=== PATIENT | male | born 1965 | race Caucasian/White ===

== ENCOUNTER 2023-02-23 09:37 | Emergency (ER) | payer MEDICARE, MEDICAID, SELFPAY ==
[2023-02-23 09:46] VITALS: BP 146/88; PULSE 104; RESP 20; TEMP 37; O2SAT 98; BMI 32.1
[2023-02-23] MEDS: PREDNISONE 20 MG TABLET 40 MG PO (11:46)
--- NOTE | 2023-02-23 15:56 | ED.URI1 ---
HPI - URI/Sore Throat General Chief Complaint: Upper Respiratory Infection Stated Complaint: SINUSES LT SIDE PAIN Time Seen by Provider: 02/23/23 10:13 Source: patient Limitations: no limitations History of Present Illness HPI Narrative: The patient have history of chronic allergy and he usually have drainage from his left nostril but he noted that for the last few days has been getting worse with tenderness on palpation of the left side of the face as well as a greenish discharge The patient denies any other complaints Related Data Home Medications Medication Instructions Recorded Confirmed allopurinol 100 mg tablet 100 mg PO DAILY 02/23/23 02/23/23 atorvastatin 20 mg tablet 20 mg PO DAILY 02/23/23 02/23/23 escitalopram oxalate 20 mg tablet 20 mg PO DAILY 02/23/23 02/23/23 fexofenadine 180 mg tablet 180 mg PO DAILY 02/23/23 02/23/23 levothyroxine 112 mcg tablet 112 mcg PO DAILY 02/23/23 02/23/23 ropinirole 0.25 mg tablet 0.25 mg PO DAILY 02/23/23 02/23/23 trazodone 50 mg tablet 50 mg PO BEDTIME 02/23/23 02/23/23 Previous Rx's Medication Instructions Recorded amoxicillin 875 mg-potassium 1 tab PO Q12H #14 tabs 02/23/23 clavulanate 125 mg tablet fluticasone propionate 50 1 spray intranasal Q12H #16 grams 02/23/23 mcg/actuation nasal spray,suspension (Flonase Allergy Relief) Allergies Allergy/AdvReac Type Severity Reaction Status Date / Time No Known Drug Allergies Allergy Verified 02/23/23 09:43 Review of Systems ROS Status of ROS 10 or more systems reviewed and unremarkable except as noted in history and below PFSH PFS Social History Smoking status: Former smoker Exam Narrative Exam Narrative: Nurses notes and vital signs reviewed and patient is not hypoxic. General: Well-appearing and in no apparent distress. Skin: Warm, dry, no pallor noted. No rash. Head: Normocephalic, atraumatic. Neck: Supple, non-tender. Eye: Pupils are equal, round and EOMI. No scleral icterus. Ears, Nose, Mouth, and Throat: TM are clear, no nasal mucosal hypertrophy. Oral mucosa is moist, no posterior oropharynx erythema, uvula is mid-line Cardiovascular: Regular Rate and Rhythm without murmur, gallop or rub. There is tenderness upon palpation of the left side of the face at the maxillary area and the patient have nasal mucosa erythema Respiratory: No accessory muscle use or respiratory distress. Lungs are clear to auscultation, no wheezing, rales or rhonchi Chest Wall: no tenderness Back: No midline thoracic or lumbar vertebral tenderness. No CVA tenderness Musculoskeletal: normal ROM, no calf or popliteal tenderness, no lower extremity edema/swelling GI: Abdomen is soft, non-distended. Normal bowel sounds. No masses appreciated. No tenderness to palpation. No rebound, guarding, or rigidity noted. Neurological: A&O x4. No cranial nerve dysfunction observed. No truncal ataxia. Moves all extremities. Sensation intact. Psychiatric: Cooperative and interactive. Normal mood and affect. Constitutional Vital Signs, click to edit/add: Last Vital Signs Temp 98.6 F 02/23/23 09:46 Pulse 104 H 02/23/23 09:46 Resp 20 02/23/23 09:46 BP 146/88 H 02/23/23 09:46 Pulse Ox 98 02/23/23 09:46 O2 Del Method Room Air 02/23/23 09:46 Course Vital Signs Vital signs: Vital Signs Temperature 98.6 F 02/23/23 09:46 Pulse Rate 104 H 02/23/23 09:46 Respiratory Rate 20 02/23/23 09:46 Blood Pressure 146/88 H 02/23/23 09:46 Pulse Oximetry 98 02/23/23 09:46 Oxygen Delivery Method Room Air 02/23/23 09:46 Temperature 98.6 F 02/23/23 09:46 Pulse Rate 104 H 02/23/23 09:46 Respiratory Rate 20 02/23/23 09:46 Blood Pressure 146/88 H 02/23/23 09:46 Pulse Oximetry 98 02/23/23 09:46 Oxygen Delivery Method Room Air 02/23/23 09:46 MDM - URI/Sore Throat MDM Narrative Medical decision making narrative: The patient presenting with a greenish-yellowish discharge with tenderness upon palpation of the left sinus with a history of chronic allergic sinusitis the patient right now mostly have bacterial infection on top of his chronic sinusitis and he will be treated with Augmentin The patient is to follow up with primary care physician in next 2-3 days or to return to the emergency department should any of the signs or symptoms worsen or new symptoms develop. The patient agrees with the following Diagnosis and Treatment plan and the patient will be discharged home. Discharge Plan Discharge Chief Complaint: Upper Respiratory Infection Clinical Impression: Bacterial sinusitis Patient Disposition: Home, Self-Care Time of Disposition Decision: 11:24 Condition: Good Prescriptions / Home Meds: New amoxicillin-pot clavulanate 875-125 mg tablet 1 tab PO Q12H Qty: 14 0RF fluticasone propionate [Flonase Allergy Relief] 50 mcg/actuation spray,suspension 1 spray intranasal Q12H Qty: 16 0RF Rx Instructions: administer into each nostril No Action allopurinol 100 mg tablet 100 mg PO DAILY atorvastatin 20 mg tablet 20 mg PO DAILY fexofenadine 180 mg tablet 180 mg PO DAILY escitalopram oxalate 20 mg tablet 20 mg PO DAILY levothyroxine 112 mcg tablet 112 mcg PO DAILY ropinirole 0.25 mg tablet 0.25 mg PO DAILY trazodone 50 mg tablet 50 mg PO BEDTIME Instructions: Sinusitis (ED) Stand Alone Forms: Portal Instructions Referrals: Physician,Non-Staff, MD [Primary Care Provider] - 1 week Discharge Date/Time: 02/23/23 11:52
== END 2023-02-23 11:52 | disposition home or self-care (01) ==
PROVIDERS: Emergency Provider Emergency Medicine
DX: J32.9 Chronic sinusitis, unspecified (principal); B96.89 Other specified bacterial agents as the cause of diseases classified elsewhere; Z79.899 Other long term (current) drug therapy; Z79.890 Hormone replacement therapy; Z87.891 Personal history of nicotine dependence
CPT/HCPCS: 99283

== ENCOUNTER 2023-10-17 08:18 | Outpatient (OUT) | payer MEDICARE, MEDICAID, SELFPAY ==
[2023-10-17 08:52] LABS: Bilirubin Urine NEGATIVE (NEGATIVE); Blood Urine NEGATIVE (NEGATIVE); Clarity Urine CLEAR (CLEAR); Color Urine YELLOW (YELLOW); Glucose Urine UA NEGATIVE (NEGATIVE); Ketones Urine NEGATIVE (NEGATIVE); Leukocyte Esterase Urine NEGATIVE (NEGATIVE); Nitrite Urine NEGATIVE (NEGATIVE); Protein Urine NEGATIVE (NEG/TRACE); Specific Gravity Urine 1.025 (1.005-1.025); Urobilinogen Urine 0.2 EU/dL (0.2-1.0)
[2023-10-17 08:55] LABS: Urine Microscopic Indicated NO
[2023-10-17 10:14] LABS: Prostate Specific Antigen Dx 6.74 ng/mL (<=4.00)
[2023-10-17 10:56] LABS: Chol HDL Ratio 4.5; Cholesterol 168 mg/dL (<=200); HDL Cholesterol 37 mg/dL (40-60); Triglycerides 209 mg/dL (<=150); Uric Acid 5.8 mg/dL (3.5-7.2); VLDL CHOLESTEROL 41.8 mg/dL
== END 2023-10-17 08:19 | disposition home or self-care (01) ==
LOC: LAB 08:19
PROVIDERS: PCP Nurse Practitioner; Visit Provider Nurse Practitioner
DX: E78.2 Mixed hyperlipidemia (principal); M1A.9XX0 Chronic gout, unspecified, without tophus (tophi); Z12.5 Encounter for screening for malignant neoplasm of prostate; Z72.0 Tobacco use
CPT/HCPCS: 36415; 80061; 81003; 84153; 84550

== ENCOUNTER 2023-11-14 08:58 | Outpatient (OUT) | payer MEDICARE, MEDICAID, SELFPAY ==
--- OUTSIDE RECORDS SUMMARY | 2023-11-14 09:08 | XMS_ITS | CCD ---
Author Organization [facility] Care Team Providers Care Bar Manager Name Role Phone AICHHOLZ, LATIN DANCER SHAZIA Consulting Unavailable AICHHOLZ, LATIN DANCER SHAZIA Attending Unavailable AICHHOLZ, LATIN DANCER SHAZIA Admitting Unavailable AICHHOLZ, LATIN DANCER SHAZIA Primary Care Unavailable AICHHOLZ, LATIN DANCER SHAZIA Consulting Unavailable AICHHOLZ, LATIN DANCER SHAZIA Attending Unavailable AICHHOLZ, LATIN DANCER SHAZIA Admitting Unavailable AICHHOLZ, LATIN DANCER SHAZIA Primary Care Unavailable Aichholz PELLETISING EXTRUDER OPERATOR, Shazia Unavailable Patric Quevedo MD Primary Care Provider MIGUELANGEL RIVERO Attending Unavailable AICHHOLZ, SHAZIA J Referring Unavailable AICHHOLZ, SHAZIA J Primary Care Unavailable DANI SEGAL Attending Unavailable AICHHOLZ, SHAZIA J Referring Unavailable AICHHOLZ, SHAZIA J Primary Care Unavailable RODDY JACINTO Attending Unavailable RODDY JACINTO Referring Unavailable RODDY JACINTO Referring Unavailable RODDY JACINTO Referring Unavailable JR. BLACKMON GEORGE C Attending Unavaila ble RODDY JACINTO Attending Unavailable RODDY JACINTO Referring Unavailable AICHHOLZ, SHAZIA Attending Unavailable AICHHOLZ, SHAZIA J Referring Unavailable AICHHOLZ, SHAZIA J Primary Care Unavailable MIGUELANGEL RIVERO Referring Unavailable AICHHOLZ, SHAZIA J Primary Care Unavailable MIGUELANGEL RIVERO Admitting Unavailable MIGUELANGEL RIVERO Attending Unavailable MIGUELANGEL RIVERO Referring Unavailable AICHHOLZ, SHAZIA J Primary Care Unavailable CAMILO CHAVIRA Attending Unavailable AICHHOLZ, SHAZIA J Primary Care Unavailable EMANUEL HANKINS Referring Unavailable AICHHOLZ, SHAZIA J Primary Care Unavailable EMANUEL HANKINS Attending Unavailable AICHHOLZ, SHAZIA J Referring Unavailable AICHHOLZ, SHAZIA J Primary Care Unavailable EMANUEL HANKINS Referring Unavailable AICHHOLZ, SHAZIA J Primary Care Unavailable SHAZIA BARRIENTOS Primary Care Physician DEVIN TOLLIVER Attending Unavailab le Allergies Allergy Classification Reported Allergen(s) Allergy Type Date of Onset Reaction(s) Facility (1 source) celecoxib Drug Allergy 3 [facility] Repository (7 sources) celecoxib; Translations: [CELECOXIB] Drug Allergy 3 [facility] (4 sources) Octacosanol Drug Intolerance 3 Itching [facility] (1 source) No Known Medication Allergies; Translations: [No Known Medication Allergies] Propensity to adverse reactions (disorder) [facility] Repository Medications Current Medications Medication Drug Class(es) Dates Sig (Normalized) Sig (Original) allopurinol 100 mg oral tablet (5 sources) Xanthine Oxidase Inhibitor Start: 08-05-2019 take 1 tablet by mouth twice daily allopurinol 100 mg Tab 100 mg = 1 tab(s), Oral, BID Start Date: 08/05/19 Status: Ordered atorvastatin 20 mg oral tablet (5 sources) HMG-CoA Reductase Inhibitor Start: 08-05-2019 take 1 tablet by mouth once daily atorvastatin 20 mg Tab 20 mg = 1 tab(s), Oral, Daily Start Date: 08/05/19 Status: Ordered celecoxib 200 mg oral capsule (4 sources) Nonsteroidal Anti-inflammatory Drug take 1 capsule by mouth in the morning celecoxib (CeleBREX) 200 MG capsule Take 200 mg by mouth in the morning. 0 Active escitalopram 20 mg oral tablet (5 sources) Serotonin Reuptake Inhibitor Start: 08-05-2019 take 1 tablet by mouth once daily escitalopram 20 mg Tab 20 mg = 1 tab(s), Oral, Daily Start Date: 08/05/19 Status: Ordered fexofenadine hydrochloride 180 mg oral tablet (4 sources) Histamine-1 Receptor Antagonist take 1 tablet by mouth in the morning fexofenadine (Lakeisha) 180 MG tablet Take 180 mg by mouth in the morning. 0 Active fluticasone propionate 0.05 mg/actuat metered dose nasal spray (4 sources) Corticosteroid take 2 spray(s) nasal route in the morning fluticasone (Flonase) 50 MCG/ACT nasal spray Administer 2 sprays into each nostril in the morning. Shake gently. Before first use, prime pump. After use, clean tip and replace cap.. 0 Active meloxicam 15 mg oral tablet (1 source) Nonsteroidal Anti-inflammatory Drug Start: 08-05-2019 take 1 tablet by mouth once daily meloxicam 15 mg oral tablet 15 mg = 1 tab(s), Oral, Daily Start Date: 08/05/19 Status: Ordered rOPINIRole 0.25 mg oral tablet (5 sources) Nonergot Dopamine Agonist Start: 08-05-2019 take 1 tablet by mouth three times daily ropinirole 0.25 mg Tab 0.25 mg = 1 tab(s), Oral, TID Start Date: 08/05/19 Status: Ordered tiZANidine 4 mg oral tablet (1 source) Central alpha-2 Adrenergic Agonist Start: 11-05-2023 tiZANidine 4 mg Tab Refills(s) 0 Start Date: 11/05/23 Status: Ordered traZODone hydrochloride 50 mg oral tablet (5 sources) Serotonin Reuptake Inhibitor Start: 11-05-2023 traZODONE 50 mg Tab Refills(s) 0 Start Date: 11/05/23 Status: Ordered Start: 05-13-2023 End: 08-11-2023 take 2 tablets by mouth at bedtime traZODone (Desyrel) 50 MG tablet Indications: Other insomnia Take 2 tablets (100 mg) by mouth at bedtime Take 100 mg by mouth at bedtime 180 tablet 0 05/13/2023 08/11/2023 Active Completed/Discontinued Medications Medication Drug Class(es) Dates Sig (Normalized) Sig (Original) levothyroxine sodium 0.112 mg oral capsule (5 sources) l-Thyroxine Start: 08-05-2019 take 1 capsule by mouth once daily levothyroxine 112 mcg (0.112 mg) oral capsule 112 microgram = 1 cap(s), Oral, Daily Start Date: 08/05/19 Status: Ordered take 1 tablet by mouth before me altime levothyroxine (Synthroid, Levoxyl) 112 MCG tablet Take 112 mcg by mouth in the morning. Take before meals. 0 Active Problems Problem Classification Problem Date Documented Da te Episodic/Chronic Anxiety disorders (5 sources) Anxiety; Translations: [Anxiety disorder, unspecified] Onset: 05-05-2023 05-05-2023 Chronic Biliary tract disease (4 sources) Polyp of gallbladder; Translations: [Cholesterolosis of gallbladder] Onset: 05-05-2023 05-05-2023 Episodic Cardiac dysrhythmias (1 source) Atrial fibrillation 11-05-2023 Chronic Diabetes mellitus without complication (5 sources) Other abnormal glucose; Translations: [Increased glucose level] Onset: 07-25-2022 05-05-2023 Episodic Disorders of lipid metabolism (5 sources) Hyperlipidemia; Translations: [Hyperlipidemia, unspecified] Onset: 05-05-2023 05-05-2023 Chronic Gout and other crystal arthropathies (9 sources) Gout, unspecified; Translations: [Gout] Onset: 07-16-2022 Chronic Lymphadenitis (1 source) Localized enlarged lymph nodes; Translations: [Localized enlarged lymph nodes] Onset: 09-16-2023 Episodic Non-Hodgkin`s lymphoma (4 sources) Non-Hodgkin lymphoma, unspecified, unspecified site; Translations: [Non-Hodgkin lymphoma, unspecified, lymph nodes of inguinal region and lower limb] Onset: 09-30-2023 Chronic Osteoarthritis (13 sources) Osteoarthritis of right hip joint; Translations: [Unilateral primary osteoarthritis, right hip] Onset: 05-01-2023 05-01-2023 Chronic Other connective tissue disease (2 sources) History of total replacement of right hip joint; Translations: [Presence of right artificial hip joint] 07-07-2023 Chronic Other connective tissue disease (4 sources) History of total hip arthroplasty; Translations: [Presence of unspecified artificial hip joint] Onset: 05-01-2023 05-01-2023 Chronic Other connective tissue disease (2 sources) Mass of soft tissue of right upper limb; Translations: [Other specified soft tissue disorders] 07-07-2023 Episodic Other gastrointestinal disorders (2 sources) Other intra-abdominal and pelvic swelling, mass and lump; Translations: [Other intra-abdominal and pelvic swelling, mass and lump] Onset: 09-03-2023 Episodic Other hereditary and degenerative nervous system conditions (4 sources) Restless legs; Translations: [Restless legs syndrome] Onset: 05-05-2023 05-05-2023 Chronic Other male genital disorders (2 sources) Male erectile dysfunction, unspecified; Translations: [Erectile dysfunction] Onset: 11-05-2023 Chronic Other nervous system disorders (4 sources) Antalgic gait; Translations: [Other abnormalities of gait and mobility] Onset: 05-01-2023 05-01-2023 Episodic Other non-traumatic joint disorders (2 sources) Pain in right hip joint; Translations: [Pain in right hip] 07-07-2023 Episodic Other non-traumatic joint disorders (4 sources) Pain in right knee; Translations: [Pain in joint, lower leg] Onset: 05-05-2023 05-05-2023 Episodic Other nutritional; endocrine; and metabolic disorders (1 source) Obesity, unspecified; Translations: [Obesity, unspecified] Onset: 09-03-2023 Chronic Other nutritional; endocrine; and metabolic disorders (1 source) Adult-onset obesity 08-06-2019 Chronic Other nutritional; endocrine; and metabolic disorders (2 sources) Body mass index 40+ - severely obese 08-06-2019 Chronic Other screening for suspected conditions (not mental disorders or infectious disease) (13 sources) Elevated prostate specific antigen [PSA]; Translations: [Encounter for screening for malignant neoplasm of prostate] Onset: 07-22-2022 Episodic Other upper respiratory disease (4 sources) Allergic disposition; Translations: [Other allergic rhinitis] Onset: 05-05-2023 05-05-2023 Chronic Residual codes; unclassified (4 sources) Tobacco user; Translations: [Tobacco use] Onset: 05-05-2023 05-05-2023 Episodic Residual codes; unclassified (4 sources) Insomnia; Translations: [Insomnia, unspecified] Onset: 05-05-2023 05-05-2023 Episodic Residual codes; unclassified (1 source) Chews tobacco 08-05-2019 Episodic Thyroid disorders (5 sources) Hypothyroidism; Translations: [Hypothyroidism, unspecified] Onset: 05-05-2023 05-05-2023 Chronic Unclassified (1 source) POST-OP VISIT Onset: 09-30-2023 Unclassified (1 source) Mass Onset: 09-03-2023 Unclassified (1 source) Lymphoma Onset: 10-16-2023 Unclassified (1 source) right groin mass Onset: 09-16-2023 Results Test Name Value Interpretation Reference Range Facility Lab Reportson 11-07-2023 Lab Reports [id number] #1.00TIFF Normal [facility] RAD - Pet Scan Reporton 10-24 RAD - Pet Scan Report [id number] #1.00TIFF Normal [facility] Screenson 11-07-2023 Screens [id number] #1.00TIFF Normal [facility] Screens [id number] #1.00TIFF [facility] Auth for Release of Medical Recordson 11-06-2023 Auth for Release of Medical Records [id number]# 1.00TIFF [facility] Ambulatory Visit Summaryon 0 11-05-2023 Ambulatory Visit Summary MYKEL RAZO :1965 Visit Date:11/05/2023 Ambulatory Visit Instructions Your Diagnosis Elevated PSA Your Care Team Attending Physician - NITHIN TOLLIVER PA-C Primary Care Physician - SHAZIA BARRIENTOS CNP This Is Your Medications List allopurinol (allopurinol 100 mg Tab) atorvastatin (atorvastatin 20 mg Tab) escitalopram (escitalopram 20 mg Tab) levothyroxine (levothyroxine 112 mcg (0.112 mg) oral capsule) meloxicam (meloxicam 15 mg oral tablet) ropinirole (ropinirole 0.25 mg Tab) tizanidine (tiZANidine 4 mg Tab) trazodone (traZODONE 50 mg Tab) Procedures Performed Colonoscopy, History of right hip replacement. Discharge Vitals Temperature (Temporal Artery) 37 ?C Heart Rate (Apical) 77 Respiratory Rate 16 Blood Pressure 148/90 Height 72 in Height 183 cm Weight 306.46 lb Weight 139.3 kg BMI 41.6 Medications What How Much When Instructions Unchanged allopurinol (allopurinol 100 mg Tab) 1 Tablets By Mouth 2 times a day Unchanged atorvastatin (atorvastatin 20 mg Tab) 1 Tablets By Mouth Every day Unchanged escitalopram (escitalopram 20 mg Tab) 1 Tablets By Mouth Every day Unchanged levothyroxine (levothyroxine 112 mcg (0.112 mg) oral capsule) 1 Capsules By Mouth Every day Unchanged meloxicam (meloxicam 15 mg oral tablet) 1 Tablets By Mouth Every day Unchanged ropinirole (ropinirole 0.25 mg Tab) 1 Tablets By Mouth 3 times a day Unchanged tizanidine (tiZANidine 4 mg Tab) Unchanged trazodone (traZODONE 50 mg Tab) Allergies No Known Allergies No Known Medication Allergies Problems Ongoing - Any problem that you are currently receiving treatment for. Abnormal LFTs Abnormal US (ultrasound) of abdomen Adult BMI 40.0-44.9 kg/sq m Anxiety Arthritis Atrial fibrillation BMI 40.0-44.9, adult Chewing tobacco use Dyslipidemia Elevated PSA Gout Hypothyroidism, unspecified Lymphoma Historical - Any problem that you are no longer receiving treatment for. Adult-onset obesity Patient Survey You may receive a survey via text or e-mail asking about your office visit. Please share your experience with us by completing your survey. We appreciate your feedback and thank you for choosing us for your care. Normal [facility] Patient Educationon 11-05-19 Patient Education Urology Erectile Dysfunction Erectile dysfunction (ED) is the inability to get or keep an erection in order to have sexual intercourse. ED is considered a symptom of an underlying disorder and is not considered a disease. ED may include: ? Inability to get an erection. ? Lack of enough hardness of the erection to allow penetration. ? Loss of erection before sex is finished. What are the causes? This condition may be caused by: ? Physical causes, such as: ? Artery problems. This may include heart disease, high blood pressure, atherosclerosis, and diabetes. ? Hormonal problems, such as low testosterone. ? Obesity. ? Nerve problems. This may include back or pelvic injuries, multiple sclerosis, Parkinson's disease, spinal cord injury, and stroke. ? Certain medicines, such as: ? Pain relievers. ? Antidepressants. ? Blood pressure medicines and water pills (diuretics). ? Cancer medicines. ? Antihistamines. ? Muscle relaxants. ? Lifestyle factors, such as: ? Use of drugs such as marijuana, cocaine, or opioids. ? Excessive use of alcohol. ? Smoking. ? Lack of physical activity or exercise. ? Psychological causes, such as: ? Anxiety or stress. ? Sadness or depression. ? Exhaustion. ? Fear about sexual performance. ? Guilt. What are the signs or symptoms? Symptoms of this condition include: ? Inability to get an erection. ? Lack of enough hardness of the erection to allow penetration. ? Loss of the erection before sex is finished. ? Sometimes having normal erections, but with frequent unsatisfactory episodes. ? Low sexual satisfaction in either partner due to erection problems. ? A curved penis occurring with erection. The curve may cause pain, or the penis may be too curved to allow for intercourse. ? Never having nighttime or morning erections. How is this diagnosed? This condition is often diagnosed by: ? Performing a physical exam to find other diseases or specific problems with the penis. ? Asking you detailed questions about the problem. ? Doing tests, such as: ? Blood tests to check for diabetes mellitus or high cholesterol, or to measure hormone levels. ? Other tests to check for underlying health conditions. ? An ultrasound exam to check for scarring. ? A test to check blood flow to the penis. ? Doing a sleep study at home to measure nighttime erections. How is this treated? This condition may be treated by: ? Medicines, such as: ? Medicine taken by mouth to help you achieve an erection (oral medicine). ? Hormone replacement therapy to replace low testosterone levels. ? Medicine that is injected into the penis. Your health care provider may instruct you how to give yourself these injections at home. ? Medicine that is delivered with a short applicator tube. The tube is inserted into the opening at the tip of the penis, which is the opening of the urethra. A tiny pellet of medicine is put in the urethra. The pellet dissolves and enhances erectile function. This is also called MUSE (medicated urethral system for erections) therapy. ? Vacuum pump. This is a pump with a ring on it. The pump and ring are placed on the penis and used to create pressure that helps the penis become erect. ? Penile implant surgery. In this procedure, you may receive: ? An inflatable implant. This consists of cylinders, a pump, and a reservoir. The cylinders can be inflated with a fluid that helps to create an erection, and they can be deflated after intercourse. ? A semi-rigid implant. This consists of two silicone rubber rods. The rods provide some rigidity. They are also flexible, so the penis can both curve downward in its normal position and become straight for sexual intercourse. ? Blood vessel surgery to improve blood flow to the penis. During this procedure, a blood vessel from a different part of the body is placed into the penis to allow blood to flow around (bypass) damaged or blocked blood vessels. ? Lifestyle changes, such as exercising more, losing weight, and quitting smoking. Follow these instructions at home: Medicines ? Take sicu-fae-xahvtep and prescription medicines only as told by your health care provider. Do not increase the dosage without first discussing it with your health care provider. ? If you are using self-injections, do injections as directed by your health care provider. Make sure you avoid any veins that are on the surface of the penis. After giving an injection, apply pressure to the injection site for 5 minutes. ? Talk to your health care provider about how to prevent headaches while taking ED medicines. These medicines may cause a sudden headache due to the increase in blood flow in your body. General instructions ? Exercise regularly, as directed by your health care provider. Work with your health care provider to lose weight, if needed. ? Do not use any products that contain nicotine or tobacco. These products include cig (more content not included)... Normal [facility] Urology Office/Clinic Noteon 11-05-2023 Urology Office/Clinic Note Chief Complaint Pt is here for elevated PSA HPI Staff Mykel is a 57 yo male new pt here due to elevated PSA. PSA: 07/22/22 - 6.0 & 14.5% *only level on [facility] 10/17/23 - 6.74 Dysuria: denies Incomplete bladder emptying: denies Hematuria: denies Frequency: denies Urgency: denies Nocturia: 0-2x a night Stream: steady stream Leaking: mild Post void dripping: denies Wearing pads/ Depends: denies Urge incontinence: denies Stress incontinence: mild lifting Incontinence without Sensory Awareness: denies Abdominal pain: denies Flank pain: denies Sexual complaints: _ Review of Systems PHQ Score Initial Depression Screen Score: 0 SCORE no fever, chills, malaise, myalgia. no rash/lesions. no chest pain, palpitations, or SOB. no abdominal pain, nausea, vomiting. no unilateral calf swelling, redness, pain Physical Exam Vitals & Measurements T: 37 ?C(Temporal Artery) HR: 77(Apical) RR: 16 BP: 148/90 HT: 72 in HT: 183 cm WT: 139.3 kg WT: 306.46 lb BMI: 41.6 General: nontoxic, NAD Mouth: moist mucosa Lungs: normal respiratory effort Cardio: regular rate, good distal perfusion Abdomen: nondistended, no suprapubic distention or tenderness, no CVA tenderness Neurologic: Grossly normal Skin: No rashes or suspicious lesions CRESCENCIO: benign. no asymmetry, induration, nodules. Assessment/Plan IPSS 1 QOL 1 UA completed in office today shows no microhematuria or signs of infection. 1. Elevated PSA (R97.20: Elevated prostate specific antigen [PSA]) PSA: 07/22/22 - 6.0 & 14.5% ([facility]) 10/17/23 - 6.74 ([facility]) no family hx prostate cancer. CRESCENCIO nl. reports hx fluctuating PSA and negative prostate biopsy in past. not sure on details. [facility] I discussed the pros and cons of PSA with the patient today. The various causes of PSA elevation were outlined, including prostate cancer, prostate enlargement, infection of the prostate, inflammation without infection, as well as prostate manipulation. The options regarding this PSA elevation, including prostate biopsy versus close monitoring, versus obtaining an MRI of the prostate were discussed. We will wait to make any decisions until I can review his full urologic history. Will call him with recommendations once I am able to review [facility] records. Ordered: Complex E&M Add on G2211 E&M of New Patient Moderate 45-59 Min 14830 Urnls Dip Stick Auto w/o Microscopy POC 09117 2. ED (erectile dysfunction) (N52.9: Male erectile dysfunction, unspecified) ESPERANZA 15 did not have a chance to discuss this today as we spent the majority of our time discussing #1 and attempting to find previous PSAs (checked [facility], [facility], [facility], [facility] without success beyond the 2 values listed). will address in future. Ordered: Complex E&M Add on G2211 E&M of New Patient Moderate 45-59 Min 52956 3. 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 diagnosed a couple months ago. surgical excision about 1 mo ago. PET 10/24/23 neg Ordered: Complex E&M Add on G2211 E&M of New Patient Moderate 45-59 Min 41126 Total time spent reviewing previous notes/results/dark room attendant al documents, preparing the chart, conducting the encounter with the patient and family, ordering tests/medications, and documenting the encounter was _45 mins Follow-up With When Contact Information NITHIN TOLLIVER PA-C, URL [address] [place] [address] Business (1) Additional Instructions: pending results of imaging/testing, will call with next steps Patient Education Erectile Dysfunction Problem List/Past Medical History Ongoing Abnormal LFTs Abnormal US (ultrasound) of abdomen Adult BMI 40.0-44.9 kg/sq m Anxiety Arthritis Atrial fibrillation BMI 40.0-44.9, adult Chewing tobacco use Dyslipidemia ED (erectile dysfunction) Elevated PSA Gout Hypothyroidism, unspecified Lymphoma Historical Adult-onset obesity Procedure/Surgical History Colonoscopy, History of right hip replacement. Medications allopurinol 100 mg Tab, 100 mg= 1 tab(s), Oral, BID atorvastatin 20 mg Tab, 20 mg= 1 tab(s), Oral, Daily escitalopram 20 mg Tab, 20 mg= 1 tab(s), Oral, Daily levothyroxine 112 mcg (0.112 mg) oral capsule, 112 mcg= 1 cap(s), Oral, Daily meloxicam 15 mg oral tablet, 15 mg= 1 tab(s), Oral, Daily ropinirole 0.25 mg Tab, 0.25 mg= 1 tab(s), Oral, TID tiZANidine 4 mg Tab traZODONE 50 mg Tab Allergies No Known Allergies No Known Medication Allergies Social History Alcohol - Denies Alcohol Use, 08/05/2019 Substance Abuse - Denies Substance Abuse, 08/05/2019 Tobacco Never (less than 100 in lifetime) Tobacco Use:. Smokeless tobacco user within last 30 days Smokeless Tobacco Use:. Oral, 11/05/2023 Family History Arthritis: Mother and Father. Heart failure: Father. Hypertension: Mother. Immunizations Vaccine Date Status pneumococcal 13-valent vaccine 0 (more content not included)... Normal [facility] Comment on above: Result Comment: Elec tronically Signed By: NITHIN TOLLIVER PA-C\.br\Date and Time Signed: 11/05/23 15:[address] SKULL TO THIGHon 05-[address] SKULL TO THIGH PET CT SKULL TO THIGH PET CT SKULL TO THIGH CLINICAL HISTORY:Lymphoma of right inguinal region (CMS-HCC) initial staging COMPARISON: None. TECHNIQUE: PET/CT was performed following intravenous administration of 13.5 mCi F-18 FDG with images obtained from the skull base through the mid thighs. Fasting glucose was 105 mg/dL at the time of administration. CT was performed utilizing free breathing technique and nondiagnostic collimation for the purposes attenuation correction and localization of radiotracer activity. FINDINGS: Physiologic distribution of radiotracer within the neck and frontal soft tissues. No abnormal enlarged cervical, supraclavicular or axillary lymph nodes. There is diffuse nonspecific uptake within the thyroid. No abnormal enlarged mediastinal or hilar lymph nodes. Mild uptake in the right tonsillar pillar likely reactive or inflammatory. There is no avid lung consolidation. Physiologic bowel and urinary activity. No abnormal enlarged mesenteric, retroperitoneal or pelvic lymph nodes. Streak artifact from right hip prosthesis. No abnormal osseous accumulation is seen. IMPRESSION: 1. No current scintigraphic evidence of metabolically active neoplastic disease or lymph node enlargement. 2. Diffuse nonspecific uptake within the thyroid. Correlation with thyroid function test is recommended. Finalized by Miguelangel Cha MD on 10/24/2023 7:44 PM Normal [facility] Flow cytometry specialist re view Maico (Unsp spec) [Interp]on 09-16-2023 FLOW CYTOMETRY TISSUE/FLUID, NON CSF/NON BAL SEE SEPARATE REPORT, REVIEWED BY PATHOLOGIST Normal [facility] Comment on above: Performed By: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
== END 2023-11-14 08:59 | disposition home or self-care (01) ==
LOC: LAB 09:04
PROVIDERS: PCP Nurse Practitioner; Visit Provider Nurse Practitioner
DX: E03.9 Hypothyroidism, unspecified (principal)
CPT/HCPCS: 36415; 84439; 84443

== ENCOUNTER 2023-12-17 08:44 | Outpatient (OUT) | payer MEDICARE, MEDICAID, SELFPAY ==
--- NOTE | 2023-12-17 08:51 | MR_ITS ---
[address] [address] Patient Name: PRAVEEN AMADOR MRN: [id number] date: 1965 Sex: M Assigned Patient Location: MRI Current Patient Location: Accession/Order Number: [id number] Exam Date: 12/17/2023 09:15 Report Date: 12/19/2023 08:41 At the request of: RODDY ALEX Procedure: MR shoulder LT wo con EXAMINATION: MR shoulder LT wo con HISTORY: Internal Derangement Of Left Shoulder M24.812 COMPARISON: No relevant comparison available. TECHNIQUE: A variety of imaging planes and parameters were utilized for visualization of suspected pathology. Imaging was performed without or with contrast as indicated by examination type. FINDINGS: ROTATOR CUFF REGION CUFF TENDONS: Small area of T2 signal within the distal supraspinatus tendon suggesting strain. Prominent T2 signal in the supraspinatus tendon at its attachment to the humeral head suspected to represent partial tear; no convincing complete tear or retraction. CUFF MUSCLES: Normal appearing muscles. DELTOID: Normal. No significant atrophy or tear. LONG BICEPS TENDON: Normal. No abnormal signal, attrition, or tear. LABRUM/BICEPS ANCHOR SUPERIOR: Normal. No visible labral tear or biceps anchor pathology. ANTERIOR/INFERIOR: Normal. No visible tear or attrition. POSTERIOR: Normal. No posterior labrum abnormality. CAPSULE Normal. No visible capsular laxity or thickening. 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 AC LIGAMENTS: Normal acromioclavicular ligament. CC LIGAMENTS: Normal coracoclavicular ligaments. ACROMION: Normal horizontal (Type I) configuration. SUBACROMIAL BURSA: Normal. No significant effusion. HYALINE CARTILAGE: Normal. No visible cartilage narrowing or focal defect. OTHER BONES: Normal proximal humerus, glenoid, and coracoid. OTHER OBSERVATIONS: Negative. No other significant findings or glenohumeral effusion. MR/MR shoulder LT wo con IMPRESSION: 1. Partial tear suspected involving the supraspinatus tendon at its humeral head attachment. Additional high-grade strain within mid and proximal tendon. 2. Moderate marked degenerative changes of the acromioclavicular joint with undersurface osteophytes impinging on the superior rotator cuff at the musculotendinous junction. Electronically authenticated by: FRANCI TURNER Date: 12/19/2023 08:41
--- NOTE | 2023-12-17 08:58 | XR_ITS ---
[address] [address] Patient Name: PRAVEEN AMADOR MRN: [id number] date: 1965 Sex: M Assigned Patient Location: MRI Current Patient Location: MRI Accession/Order Number: [id number] Exam Date: 12/17/2023 08:58 Report Date: 12/17/2023 09:16 At the request of: RODDY ALEX Procedure: XR foreign body eye HIPOLITO EXAMINATION: XR foreign body eye HIPOLITO HISTORY: screening for MRI COMPARISON: No relevant comparison available. FINDINGS: ORBITS: Negative for a metallic foreign body. OTHER: Negative. XR/XR foreign body eye HIPOLITO IMPRESSION: No metallic foreign body in the orbits Electronically authenticated by: CAMILO CUETO Date: 12/17/2023 09:16
--- OUTSIDE RECORDS SUMMARY | 2023-12-17 09:08 | XMS_ITS | CCD ---
Author Organization [facility]ini[facility]ky Care Team Providers Care Cottage Attendant Name Role Phone AICHHOLZ, AUTOMOTIVE GENERAL MANAGER SHAZIA Consulting Unavailable AICHHOLZ, AUTOMOTIVE GENERAL MANAGER SHAZIA Attending Unavailable AICHHOLZ, AUTOMOTIVE GENERAL MANAGER SHAZIA Admitting Unavailable AICHHOLZ, AUTOMOTIVE GENERAL MANAGER SHAZIA Primary Care Unavailable AICHHOLZ, AUTOMOTIVE GENERAL MANAGER SHAZIA Consulting Unavailable AICHHOLZ, AUTOMOTIVE GENERAL MANAGER SHAZIA Attending Unavailable AICHHOLZ, AUTOMOTIVE GENERAL MANAGER SHAZIA Admitting Unavailable AICHHOLZ, AUTOMOTIVE GENERAL MANAGER SHAZIA Primary Care Unavailable Aichholz SENIOR ENERGY MARKET COORDINATOR, Shazia Unavailable Patric Quevedo MD Primary Care Provider [phone] MIGUELANGEL RIVERO Attending Unavailable AICHHOLZ, SHAZIA J Referring Unavailable AICHHOLZ, SHAZIA J Primary Care Unavailable DANI SEGAL Attending Unavailable AICHHOLZ, SHAZIA J Referring Unavailable AICHHOLZ, SHAZIA J Primary Care Unavailable AICHHOLZ, SHAZIA J Referring Unavailable AICHHOLZ, [...] Unavailable AICHHOLZ, SHAZIA J Primary Care Unavailable AICHHOLZ, SHAZIA J Primary Care Physician [phone] NITHIN TOLLIVER Attending Unavailable RODDY JACINTO Attending Unavailable RODDY JACINTO Referring Unavailable RODDY JACINTO Referring Unavailable RODDY JACINTO Referring Unavailable JR. BLACKMON GEORGE C Attending RODDY Frey Attending Unavailable RODDY JACINTO Referring Unavailable SHAZIA BARRIENTOS Attending Unavailable SHAZIA BARRIENTOS Attending Unavailable RODDY JACINTO Attending Unavailable RODDY JACINTO Attending Unavailable Allergies Allergy Classification Reported Allergen(s) Allergy Type Date of Onset Reaction(s) Facility (1 source) celecoxib Drug Allergy 3 [facility] Repository (7 sources) celecoxib; Translations: [CELECOXIB] Drug Allergy 3 [facility] (4 sources) Octacosanol Drug Intolerance 3 Itching [facility] (1 source) No Known Medication Allergies; Translations: [No Known Medication Allergies] Propensity to adverse reactions (disorder) [facility] Repository Medications Current Medications Medication Drug [...] Test Name Value Interpretation Reference Range Facility Transfer [facility] 11-18-2023 Transfer In [id number]# 1.00TIFF [facility] Lab Reportson 11-07-2023 Lab Reports [id number] #1.00TIFF [facility] RAD - Pet Scan Reporton 10-24 RAD - Pet Scan Report [id number] #1.00TIFF [facility] Screenson 11-07-2023 Screens [id number] #1.00TIFF Normal [facility] Screens [id number] #1.00TIFF [facility] Auth for Release of Medical Recordson 11-06-2023 Auth for Release of Medical Records [id number]# 1.00TIFF [facility] Ambulatory Visit Summaryon 0 11-05-2023 Ambulatory Visit [...] for choosing us for your care. Normal [facility] Patient Educationon 11-05-19 Patient Education Urology [...] these instructions at home: Medicines ? Take cfkv-dvc-mstdpnv and prescription medicines only as told by [...] include cig (more content not included)... Normal [facility] Urology Office/Clinic Noteon 11-05-2023 Urology Office/Clinic [...] [PSA]) PSA: 07/22/22 - 6.0 & 14.5% (TB) 10/17/23 - 6.74 (TB) no family hx prostate cancer. [facility] nl. reports hx fluctuating PSA and negative prostate biopsy in past. not sure on details. will request records from [facility]. I discussed the pros and cons of [...] recommendations once I am able to review [facility] records. Ordered: Complex E&M Add on G2211 E&M of New Patient Moderate 45-59 Min 91329 Urnls Dip Stick Auto w/o Microscopy POC 07861 2. ED (erectile dysfunction) (N52.9: Male erectile dysfunction, unspecified) ESPERANZA 15 did not have a chance to discuss this today as we spent the majority of our time discussing #1 and attempting to find previous PSAs (checked TB, [facility], [facility], [facility] without success beyond the 2 values listed). will address in future. Ordered: Complex E&M Add on G2211 E&M of New Patient Moderate 45-59 Min 94772 3. 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 diagnosed a couple months ago. surgical excision about 1 mo ago. PET 10/24/23 neg Ordered: Complex E&M Add on G2211 E&M of New Patient Moderate 45-59 Min 82077 Total time spent reviewing previous notes/results/resp therapist al documents, preparing the chart, conducting the encounter with the patient and family, ordering tests/medications, and documenting the encounter was _45 mins Follow-up With When Contact Information NITHIN TOLLIVER PA-C, URL [phone] [facility] [place] [address] Business (1) Additional Instructions: pending [...] vaccine 0 (more content not included)... Normal [facility] Comment on above: Result Comment: Elec tronically Signed By: NITHIN TOLLIVER PA-C\Date and Time Signed: 11/05/23 15:58 EDT PET [...] Cha MD on 10/24/2023 7:44 PM Normal [facility] Flow cytometry specialist re view Maico (Unsp spec) [Interp]on 09-16-2023 FLOW CYTOMETRY TISSUE/FLUID, NON CSF/NON BAL SEE SEPARATE REPORT, REVIEWED BY PATHOLOGIST Normal [facility] Comment on above: Performed By: #### 6 9052-9 #### [facility] ([id number]) [address] [place] [address], [address] [place] [address] Surgical Pathologyon 024 Surgical Pathology Normal [facility] Comment on above: Result Comment: [facility] Medicine [address] [place] [address] Surgical Pathology Consultation Patient Name:MYKEL RAZO:1965 (Age: 57)Gender:MTaken:09/16/2023eported:09/19/2023hysician(s):Miguelangel Rivero D.O. ([phone])Copy To: Rec. #:[id number]: #[id number] Final Pathologic Diagnosis Right groin lymph node, [...] with histopathologic evaluation is required for diagnosis ([id number]). Immunophenotyping antibodies tested: CD3, CD5, CD7, CD10, CD19, CD20, CD23, CD45, [place], and Lambda. Immunophenotyping Comment: Immunophenotyping has been used in this diagnostic evaluation. This test was developed and its performance characteristics determined by the [facility] Department. It has not been [...] Pooja Patton MD PhD Interpretation performed at [facility], [address] [place] [address], License number: [id number]. Clinical History Right groin mass. Gross Description Received fresh in a sterile container labeled RAZO, right groin is a focally disrupted, dark pink-poole well-circumscribed lymph node with adherent yellow-poole lobulated adipose tissue, 4.6 x 3.7 x 2.0 cm. The specimen is serially sectioned to reveal pink-poole, fleshy, glistening cut surfaces. Facilities Flight Check Pilot sections of the specimen are submitted in RPMI media to flow cytometry. Facilities Flight Check Pilot section of the lymph node is submitted in cassette A following a period of B plus fixation, and remaining serial sections submitted entirely in cassettes B-M following fixation in 10% neutral buffered formalin. Touch prep slides for Giemsa staining and routine H&E staining are submitted. (13, ns, [id number], m5) ADALGISA maurer/09/16/2023NSK Microscopic Findings Microscopic examination performed. Specimen(s) Received Right groin lymph node Fee Codes(s): 1; 40305, 33008, 70967 TISSUE CULTUREon 09-16-2023 Bacteria identified Aer cx Nom (Tiss) GRAM STAIN >25 WHITE BLOOD CELLS/LPF 0 SQUAMOUS EPITHELIAL CELLS/LPF NO ORGANISMS SEEN CULTURE RESULTS NO GROWTH 3 DAYS Normal [facility] Comment on above: Performed By: #### 6 27-0 #### [facility] ([id number]) [address], [address] [place] [address] COMPLETE BLOOD COUNTon 09-09 Erythrocyte distribution width (RBC) [Ratio] 13.4 % Normal 11.5-15.0 [facility] Comment on above: Performed By: #### C BC, CMP #### [facility] ([id number]) [address], [address] [place] [address] Hematocrit (Bld) [Volume fraction] 42.1 % Normal 39-49 [facility] Comment on above: Performed By: #### C BC, CMP #### [facility] ([id number]) [address], [address] [place] [address] Hemoglobin (Bld) [Mass/Vol] 14.5 g/dL Normal 13.0-17.0 [facility] Comment on above: Performed By: #### C CONNER, CMP #### [facility] ([id number]) [address], [address] [place] [address] MCH (RBC) [Entitic mass] 29.9 pg Normal 27-34 [facility] Comment on above: Performed By: #### C CONNER, CMP #### [facility] ([id number]) [address], [address] [place] [address] MCHC (RBC) [Mass/Vol] 34.5 g/dL Normal 32-36 [facility] Comment on above: Performed By: #### C CONNER, CMP #### [facility] ([id number]) [address], [address] [place] [address] MCV (RBC) [Entitic vol] 87 fL Normal 80-100 [facility] Comment on above: Performed By: #### Monster PRIETO, CMP #### [facility] ([id number]) [address], [address] [place] [address] Platelet mean volume (Bld) [Entitic vol] 7.3 fL Normal 7-12 [facility] Comment on above: Performed By: #### C CONNER, CMP #### [facility] ([id number]) [address], [address] [place] [address] Platelets (Bld) [#/Vol] 273 10*3/uL Normal 150-450 [facility] Comment on above: Performed By: #### C BC, CMP #### [facility] ([id number]) [address], [address] [place] [address] RBC COUNT 4.84 X10E12/L Normal 4.10-5.70 [facility] Comment on above: Performed By: #### C BC, CMP #### [facility] ([id number]) [address], [address] [place] [address] WBC (Bld) [#/Vol] 7.2 10*3/uL Normal 4.0-11.0 [facility] Comment on above: Performed By: #### C BC, CMP #### [facility] ([id number]) [address], [address] [place] [address] COMPREHENSIVE METABOLIC PANE Mohit 09-10-2023 Albumin [Mass/Vol] 4.3 g/dL Normal 3.2-5.3 [facility] Comment on above: Performed By: #### C BC, CMP #### [facility] ([id number]) [address], [address] [place] [address] ALP [Catalytic activity/Vol] 126 U/L Normal 39-130 [facility] Comment on above: Performed By: #### C CONNER, CMP #### [facility] ([id number]) [address], [address] [place] [address] ALT [Catalytic activity/Vol] 22 U/L Normal 0-40 [facility] Comment on above: Performed By: #### C BC, CMP #### [facility] ([id number]) [address], [address] [place] [address] Anion gap [Moles/Vol] 6 mmol/L Normal 5-15 [facility] Comment on above: Performed By: #### C BC, CMP #### [facility] ([id number]) [address], [address] [place] [address] AST [Catalytic activity/Vol] 15 U/L Normal 0-41 [facility] Comment on above: Performed By: #### C BC, CMP #### [facility] ([id number]) [address], [address] [place] [address] Bilirubin [Mass/Vol] 0.6 mg/dL Normal 0.3-1.2 [facility] Comment on above: Performed By: #### C CONNER, CMP #### [facility] ([id number]) [address], [address] [place] [address] Calcium [Mass/Vol] 9.5 mg/dL Normal 8.5-10.5 [facility] Comment on above: Performed By: #### C CONNER, CMP #### [facility] ([id number]) [address] [address] [place] [address] Chloride [Moles/Vol] 105 mmol/L Normal 98-109 [facility] Comment on above: Performed By: #### C CONNER, CMP #### [facility] ([id number]) [address] [address] [place] [address] CO2 [Moles/Vol] 30 mmol/L Normal 22-32 [facility] Comment on above: Performed By: #### C CONNER, CMP #### [facility] ([id number]) [address] [address] [place] [address] Creatinine [Mass/Vol] 1.11 mg/dL Normal 0.60-1.30 [facility] Comment on above: Result Comment: METH OD TRACEABLE TO IDMS STANDARD Performed By: #### C CONNER, CMP #### [facility] ([id number]) [address] [address] [place] [address] GFR/1.73 sq M.predicted among non-blacks MDRD (S/P/Bld) [Vol rate/Area] 76 mL/min/{1.73_m2} Normal >59 [facility] Comment on above: Result Comment: Reported eGFR is based on the CKD-EPI 2020 equation that does not use a race coefficient. Performed By: #### C CONNER, CMP #### [facility] ([id number]) [address], [address] [place] [address] Glucose [Mass/Vol] 86 mg/dL Normal 65-99 [facility] Comment on above: Performed By: #### C BC, CMP #### [facility] ([id number]) [address], [address] [place] [address] Potassium [Moles/Vol] 4.1 mmol/L Normal 3.5-5.0 [facility] Comment on above: Performed By: #### C BC, CMP #### [facility] ([id number]) [address] [address] [place] [address] Protein [Mass/Vol] 7.3 g/dL Normal 6.0-8.0 [facility] Comment on above: Performed By: #### C BC, CMP #### [facility] ([id number]) [address], [address] [place] [address] Sodium [Moles/Vol] 141 mmol/L Normal 134-146 [facility] Comment on above: Performed By: #### C BC, CMP #### [facility] ([id number]) [address] [address] [place] [address] Urea nitrogen [Mass/Vol] 20 mg/dL Normal 5-23 [facility] Comment on above: Performed By: #### C BC, CMP #### [facility] ([id number]) [address], [address] [place] [address] CT PELVIS W IV CONTRASTon CT PELVIS [...] low as reasonably achievable. FINDINGS: Within the [id number] the visualized portion of the large and [...] TOUS DISEASE. ADDITIONALLY THERE IS REPORT BY BLEACHING SUPERVISOR OF HISTORY OF FARM ACCIDENT SUCH RECOMMEND [...] 07-24-2022 % Free PSA 14.5 % Normal [facility] Comment on above: Result Comment: The [...] men. Performed By: #### P SAFREE #### [facility] [address] [place] [address] Dr. Venus Guy Prostate specific Ag [Mass/Vol] 6.0 ng/mL Critically high 0.0-4.0 [facility] Comment on above: Result Comment: Angeline DE SANTIAGOIA methodology. . According to the [place] [employer], Serum PSA should decrease and [...] disease. Performed By: #### P SAFREE #### [facility] [address] [address] [address] Venus Guy PSA, Free 0.87 ng/mL Normal N/A [facility] Comment on above: Result Comment: Angeline cadena ECLIA methodology. Performed By: #### P SAFREE #### [facility] [address] [place] [address] Dr. Venus Guy GLYCOHEMOGLOBIN A1Con 2022 ADA RECOMMENDATION SEE BELOW Normal [facility] Comment on above: Result Comment: ADA RECOMMENDED LIMIT 4.0 - 6.0 ADA THERAPEUTIC TARGET < 7.0 ACTION SUGGESTED > 7.0 Performed By: #### A 1C #### [facility] [address] [place] [address] Dr. Venus Guy Glucose [Mass/Vol] 94 mg/dL Normal [facility] Comment on above: Performed By: #### A 1C #### [facility] [address] [address] [address] Venus Guy HbA1c (Bld) [Mass fraction] 4.9 % Normal 4.5-6.2 [facility] Comment on above: Performed By: #### A 1C #### [facility] [address] [place] [address] Dr. Venus Guy PROF CHEM 8 (BAS METB)on Anion gap [Moles/Vol] 10.0 mmol/L Normal [facility] Comment on above: Performed By: #### U MARTÍN, BMP #### [facility] [address] [place] [address] Dr. Venus Guy Calcium [Mass/Vol] 9.0 mg/dL Normal 8.5-10.1 [facility] Comment on above: Performed By: #### U MARTÍN, BMP #### [facility] [address] [place] [address] Dr. Venus Guy Chloride [Moles/Vol] 105 mmol/L Normal 98-107 [facility] Comment on above: Performed By: #### U MARTÍN, BMP #### [facility] [address] [place] [address] Dr. Venus Guy CO2 [Moles/Vol] 29.8 mmol/L Normal 21.0-32.0 [facility] Comment on above: Performed By: #### U MARTÍN, BMP #### [facility] [address] [place] [address] Dr. Venus Guy Creatinine [Mass/Vol] 1.15 mg/dL Normal 0.70-1.30 [facility] Comment on above: Performed By: #### U MARTÍN, BMP #### [facility] [address] [place] [address] Dr. Venus Guy EGFR-AF ZIMBABWEAN >60 Normal >=60 [facility] Comment on above: Performed By: #### U MARTÍN, BMP #### [facility] [address] [place] [address] Dr. Venus Guy EGFR-NON AF ZIMBABWEAN >60 Normal >=60 [facility] Comment on above: Performed By: #### U MARTÍN, BMP #### [facility] [address] [place] [address] Dr. Venus Guy Glucose [Mass/Vol] 119 mg/dL Critically high 74-106 [facility] Comment on above: Performed By: #### U MARTÍN, BMP #### [facility] [address] [address] [address] Venus Guy Potassium [Moles/Vol] 4.8 mmol/L Normal 3.5-5.1 [facility] Comment on above: Performed By: #### U MARTÍN, BMP #### [facility] [address] [address] [address] Venus Guy Sodium [Moles/Vol] 140 mmol/L Normal 136-145 [facility] Comment on above: Performed By: #### U MARTÍN, BMP #### [facility] [address] [place] [address] Dr. Venus Guy Urea nitrogen [Mass/Vol] 11.0 mg/dL Normal 7.0-18.0 [facility] Comment on above: Performed By: #### U MARTÍN, BMP #### [facility] [address] [place] [address] Dr. Venus Guy Urea nitrogen/Creatinine [Mass ratio] 9.6 mg/mg Normal [facility] Comment on above: Performed By: #### U MARTÍN, BMP #### [facility] [address] [place] [address] Dr. Venus Guy URIC ACID SERUMon 07-16-2022 Urate [Mass/Vol] 6.3 mg/dL Normal 3.5-7.2 [facility] Comment on above: Performed By: #### U MARTÍN, BMP #### [facility] [address] [place] [address] Dr. Venus Guy COMPREHENSIVE METABOLIC PANE Mohti 04-28-2021 Albumin [Mass/Vol] 4.1 g/dL Normal 3.6-5.1 [facility] Comment on above: Performed By: #### 7 600, 40196 #### [facility] [address], [address] [place] [address] Sales Representative Sales Manager: German Rivera MD Albumin/Globulin [Mass ratio] 1.6 {ratio} Normal 1.0-2.5 [facility] Comment on above: Performed By: #### 7 600, 33348 #### [facility] of [address], [address] [place] [address] Sales Representative Sales Manager: German Rivera MD ALP [Catalytic activity/Vol] 120 U/L Normal 35-144 [facility] Comment on above: Performed By: #### 7 600, 11163 #### [facility] of [address], [address] [place] [address] Sales Representative Sales Manager: German Rivera MD ALT [Catalytic activity/Vol] 24 U/L Normal 9-46 [facility] Comment on above: Performed By: #### 7 600, 61966 #### [facility] of [place] [address] Sales Representative Sales Manager: German Rivera MD AST [Catalytic activity/Vol] 15 U/L Normal 10-35 [facility] Comment on above: Performed By: #### 7 600, 62374 #### [facility] of [place] [address] Sales Representative Sales Manager: German Rivera MD Bilirubin [Mass/Vol] 0.5 mg/dL Normal 0.2-1.2 [facility] Comment on above: Performed By: #### 7 600, 64106 #### [facility] of [place] [address] Sales Representative Sales Manager: German Rivera MD BUN/CREATININE RATIO NOT APPLICABLE Normal 6-22 [facility] Comment on above: Performed By: #### 7 600, 06871 #### [facility] of [place] [address] Sales Representative Sales Manager: German Rivera MD Calcium [Mass/Vol] 9.0 mg/dL Normal 8.6-10.3 [facility] Comment on above: Performed By: #### 7 600, 11207 #### [facility] of [address], [address] [place] [address] Sales Representative Sales Manager: German Rivera MD Chloride [Moles/Vol] 104 mmol/L Normal 98-110 [facility] Comment on above: Performed By: #### 7 600, 91186 #### [facility] [place] [address] Sales Representative Sales Manager: German Rivera MD CO2 [Moles/Vol] 30 mmol/L Normal 20-32 [facility] Comment on above: Performed By: #### 7 600, 99768 #### [facility] [place] [address] Sales Representative Sales Manager: German Rivera MD Creatinine [Mass/Vol] 1.11 mg/dL Normal 0.70-1.33 [facility] Comment on above: Result Comment: For patients >49 years of age, the reference limit for Creatinine is approximately 13% higher for people identified as -Indonesian. Performed By: #### 7 600, 66031 #### [facility] [place] [address] Sales Representative Sales Manager: German Rivera MD eGFR NON-AFR. ZIMBABWEAN 73 mL/min/1.73m2 Normal > OR = 60 [facility] Comment on above: Performed By: #### 7 600, 94673 #### [facility] [place] [address] Sales Representative Sales Manager: German Rivera MD GFR/1.73 sq M.predicted among blacks MDRD (S/P/Bld) [Vol rate/Area] 85 mL/min/{1.73_m2} Normal > OR = 60 [facility] Comment on above: Performed By: #### 7 600, 91886 #### [facility] [place] [address] Sales Representative Sales Manager: German Rivera MD Globulin (S) [Mass/Vol] 2.6 g/dL Normal 1.9-3.7 [facility] Comment on above: Performed By: #### 7 600, 72793 #### [facility] [place] [address] Sales Representative Sales Manager: German Rivera MD Glucose [Mass/Vol] 95 mg/dL Normal 65-139 [facility] Comment on above: Result Comment: Non-fasting reference interval Performed By: #### 7 600, 11510 #### [facility] of [address], [address] [place] [address] Sales Representative Sales Manager: German Rivera MD Potassium [Moles/Vol] 4.4 mmol/L Normal 3.5-5.3 [facility] Comment on above: Performed By: #### 7 600, 46983 #### [facility] of [address], [address] [place] [address] Sales Representative Sales Manager: German Rivera MD Protein [Mass/Vol] 6.7 g/dL Normal 6.1-8.1 [facility] Comment on above: Performed By: #### 7 600, 63708 #### [facility] [address], [address] [place] [address] Sales Representative Sales Manager: German Rivera MD Sodium [Moles/Vol] 140 mmol/L Normal 135-146 [facility] Comment on above: Performed By: #### 7 600, 50800 #### [facility] of [address], [address] [place] [address] Sales Representative Sales Manager: German Rivera MD Urea nitrogen [Mass/Vol] 17 mg/dL Normal 7-25 [facility] Comment on above: Performed By: #### 7 600, 44826 #### [facility] of [place] [address] Sales Representative Sales Manager: German Rivera MD LIPID PANEL, [facility] 12-0 Cholesterol [Mass/Vol] 167 mg/dL Normal <200 [facility] Comment on above: Order Comment: FASTI NG:NO FASTING: NO Performed By: #### 7 600, 42130 #### [facility] of [place] [address] Sales Representative Sales Manager: German Rivera MD Cholesterol in HDL [Mass/Vol] 35 mg/dL Low > OR = 40 [facility] Comment on above: Order Comment: FASTI NG:NO FASTING: NO Performed By: #### 7 600, 01354 #### [facility] [address], [address] [place] [address] Sales Representative Sales Manager: Greman Rivera MD Cholesterol.total/Ch olesterol in HDL [Mass ratio] 4.8 {ratio} Normal <5.0 [facility] Comment on above: Order Comment: FASTI NG:NO FASTING: NO Performed By: #### 7 [id number], [id number] #### [facility] [address], [address] [place] [address] Sales Representative Sales Manager: German Rivera MD LDL-CHOLESTEROL Normal [facility] [...] factors. LDL-C is now calculated using the Abhijeet-Carla calculation, which is a validated novel method providing better accuracy than the Friedewald equation in the estimation of LDL-C. Abhijeet FLOWERS et al. JOSH. 2013;310(19): 6363-1599 (http://education.Pops.OuiCar/faq/GAA913) Performed By: #### 7 600, [id number] #### [facility] [address], [address] [place] [address] Sales Representative Sales Manager: German Rivera MD NON HDL CHOLESTEROL 132 mg/dL (calc) High <130 [facility] Comment on above: Order Comment: FASTI NG:NO FASTING: NO Result Comment: For patients with diabetes plus 1 major ASCVD risk factor, treating to a non-HDL-C goal of <100 mg/dL (LDL-C of <70 mg/dL) is considered a therapeutic option. Performed By: #### 7 600, [id number] #### [facility] [address], [address] [place] [address] Sales Representative Sales Manager: German Rivera MD Triglyceride [Mass/Vol] 453 mg/dL High <150 [facility] Comment on above: Order Comment: FASTI NG:NO FASTING: NO Result Comment: If a non-fasting specimen was collected, consider repeat triglyceride testing on a fasting specimen if clinically indicated. Yaneli et al. J. of Clin. Lipidol. 2015;9:129-169. Performed By: #### 7 600, [id number] #### [facility] [address] [facility], [address] [place] [address] Sales Representative Sales Manager: German Rivera MD Vital Signs Date Time Vital Sign Value Performing Clinician [facility] 11-05-2023 13:01-0400 Diastolic blood pressure 90 mm[Hg] NITHIN SHAREE [facility] 11-05-2023 13:01-0400 Heart rate 77 /min NITHIN SHAREE [facility] 11-05-2023 13:01-0400 Mean blood pressure 109 mm[Hg] NITHIN SHAREE [facility] 11-05-2023 13:01-0400 Systolic blood pressure 148 mm[Hg] NITHIN SHAREE [facility] 11-05-2023 13:00-0400 Body temperature 98.6 [degF] NITHIN SHAREE [facility] 11-05-2023 13:00-0400 Diastolic blood pressure 88 mm[Hg] NITHIN SHAREE [facility] 11-05-2023 13:00-0400 Heart rate 72 /min NITHIN SHAREE [facility] 11-05-2023 13:00-0400 Respiratory rate 16 /min NITHIN SHAREE [facility] 11-05-2023 13:00-0400 Systolic blood pressure 165 mm[Hg] NITHIN TOLLIVER [facility] 07-07-2023 10:59-0500 Body height 188 cm Roddy HELLER Work Phone: [facility] 07-07-2023 10:59-0500 Body mass index (BMI) [Ratio] 32.1 kg/m2 Roddy Jacinto PA Work Phone: [facility] 07-07-2023 10:59-0500 Body weight 113.4 kg Roddy Jacinto PA Work Phone: [facility] Healthcare Encounters Encounter Date Encounter Type Care Provider Facility Start: 12-08-2023 End: 12-08-2023 ambulatory RODDY JACINTO Not Available Start: 11-17-2023 End: 11-17-2023 ambulatory RODDY JACINTO Not Available Start: 11-13-2023 End: 11-13-2023 ambulatory SHAZIA AICHHOLZ Not Available Start: 11-07-2023 ambulatory NITHIN TLOLIVER Facility :[facility] Start: 11-05-2023 End: 11-05-2023 ambulatory NITHIN TOLLIVER Facility:[facility] Start: 11-05-2023 End: 11-05-2023 Patient encounter procedure NITHIN TOLLIVER [facility] Start: 10-24-2023 End: 10-24-2023 ambulatory [facility] Start: 10-16-2023 End: 10-16-2023 ambulatory [facility] Start: 10-13-2023 End: 10-13-2023 ambulatory SHAZIA AICHHOLZ Not Available Start: 10-10-2023 End: 10-10-2023 ambulatory [facility] Start: 09-30-2023 End: 09-30-2023 ambulatory DANI SEGAL [facility] Start: 09-16-2023 End: 09-16-2023 Evaluation and management of inpatient CAMILO CHAVIRA [facility] Start: 09-16-2023 End: 09-16-2023 Evaluation and management of inpatient [facility] Start: 09-10-2023 Encounter for other [facility]procedural [facility] Start: 09-10-2023 End: 09-10-2023 ambulatory [facility] Start: 09-03-2023 End: 09-03-2023 ambulatory [facility] Start: 07-28-2023 End: 07-28-2023 ambulatory RODDY JACINTO Not Available Start: 07-21-2023 End: 07-21-2023 ambulatory JULIO CESAR COBB Not Available Start: 07-17-2023 End: 07-17-2023 ambulatory RODDY JACINTO Not Available Start: 07-09-2023 End: 07-09-2023 ambulatory RODDY JACINTO Not Available Start: 07-07-2023 End: 07-07-2023 Office outpatient visit 15 minutes Roddy HELLER Work Phone: [facility] Comment on above: History of total rig ht hip replacement (Primary Dx); Right hip pain; Mass of soft tissue of right upper extremity Start: 07-07-2023 End: 07-07-2023 Telemedicine consultation with patient Roddy William HELLER Work Phone: [facility] Comment on above: Canceled (Other: Err or) Start: 07-07-2023 End: 07-07-2023 ambulatory RODDY JACINTO Not Available Start: 07-22-2022 End: 07-23-2022 ambulatory DINORAH SHAZIA MIKERobinsonMAICOL Facility:[facility] Start: 07-16-2022 End: 07-17-2022 ambulatory DINROAH PUENTES MIKERobinsonMAICOL Facility:[facility] Procedures Date Procedure Procedure Detail Performing Clinician Start: 07-22-2022 PSA screening DINORAH SHAZIA MIKERobinsonMAICOL Comment on above: Performed By: #### P [facility] #### [facility] [address] [place] [address] Dr. Venus TOLLIVER History of right hip replacement NITHIN TOLLIVER Plan of Treatment Date Care Activity Detail Author Start: 07-28-2023 End: 07-28-2023 Patient encounter procedure 07/28/2023 9:45 AM EST Office Visit [facility] [address] [facility] [address] [place] [id number] Roddy Jacinto PA [address] [facility] [address] [place] [address] [facility] Start: 07-07-2023 End: 07-07-2024 US LOWER EXTREMITY NON-VASC RIGHT US LOWER EXTREMITY NON-VASC RIGHT Imaging Routine Mass of soft tissue of right upper extremity Expected: 07/07/2023 (Approximate), Expires: 07/07/2024 [facility] Work Phone: Comment on above: Expected: 07/07/2023 (Approximate), Expires: 07/07/2024 Start: 01-24-2023 Influenza vaccination Influenza Vacc ine (#1) [facility] Start: 1965 Medicare Annual Wellness (AWV) Medicare Annual Wellness (AWV) [facility] Start: 1965 Screening for malignant neoplasm of colon [facility] XR Hip - right 3 Views XR hip ri ght 2 or 3 views Imaging Routine Right hip pain 07/07/2023 10:42 AM EST [facility] Immunizations Immunization Date Immunization Notes Care Provider Fa cility 05-29-2022 influenza, injectabl e, quadrivalent, preservative free Roddy HELLER Work Phone: [facility] 05-29-2022 pneumococcal conjuga te vaccine, 13 valent Roddy HELLER Work Phone: [facility] 05-29-2022 influenza virus vaccine, unspecified formulation Roddy HELLER Work Phone: [facility] 03-11-2021 influenza virus vaccine, unspecified formulation NITHIN TOLLIVER [facility] 03-11-2021 influenza, injectabl e, quadrivalent, preservative free Roddy HELLER Work Phone: [facility] 02-01-2021 SARS-CoV-2 (COVID-19 ) mRNA BNT-162b2 vax NITHIN TOLLIVER [facility] 01-05-2021 SARS-CoV-2 (COVID-19 ) mRNA BNT-162b2 vax NITHIN TOLLIVER [facility] 02-18-2017 influenza virus vaccine, unspecified formulation NITHIN TOLLIVER [facility] 02-18-2017 influenza, injectabl e, quadrivalent, contains preservative Roddy HELLER Work Phone: [facility] 05-23-2015 influenza virus vaccine, unspecified formulation NITHIN TOLLIVER [facility] 05-23-2015 influenza, injectabl e, quadrivalent, preservative free Roddy HELLER Work Phone: [facility] 06-24-2014 zoster vaccine, live Roddy HELLER Work Phone: [facility] Payers Date Payer Category Payer Medicare [employer] MEDICARE ADVANTAGE [employer] MEDICARE [id number] 2022-Present [address] [address] [place] [address] [id number] 2017 Medicaid MEDICAID [facility] [id number] 2017-Present [phone] [address] [place] [address] Medicaid [id number] 1963 Unknown [id number] 1963 Unknown [id number] 2.840.1.137002.3.579.2.59 1963 Unknown [id number] 2.16.840.1.201711.3.579.2.1285 1963 Unknown [id number] 2.840.1.838675.3.579.2.1285 1963 Unknown [id number] 2.840.1.620803.3.579.2.1285 1963 Unknown [id number] 2.840.1.667979.3.579.2.1285 1963 Unknown [id number] 2.840.1.305001.3.579.2.1285 1963 Unknown [id number] 2.0.1.462159.3.579.2.1285 1963 Unknown [id number] 2.840.1.245328.3.579.2.1285 1963 Unknown [id number] 2.0.1.766041.3.579.2.1285 1963 Unknown [id number] 2.840.1.493716.3.579.2.1285 1963 Unknown [id number] 2.840.1.974971.3.579.2.1285 1963 Unknown [id number] 2.840.1.977133.3.579.2.1285 1963 Unknown [id number] 2.840.1.291520.3.579.2.727 1963 Unknown [id number] 2.840.1.366041.3.579.2.1258 1963 Unknown [id number] 2.840.1.096904.3.579.2.9 1963 Unknown [id number] 2.16.840.1.874673.3.579.2.9 1963 Unknown [id number] 2.16.840.1.928598.3.579.2.1258 1963 Unknown [id number] 2.16.840.1.879139.3.579.2.1258 1963 Unknown [id number] 2.16.840.1.425820.3.579.2.1258 1963 Unknown [id number] 2.16.840.1.334196.3.579.2.1258 1963 Unknown [id number] 2.16.840.1.029174.3.579.2.1258 1963 Unknown [id number] 2.16.840.1.517352.3.579.2.1258 1963 Unknown [id number] 2.16.840.1.492696.3.579.2.1258 1963 Unknown [id number] 2.16.840.1.522100.3.579.2.9 1959 Medicaid [id number] 1961 Medicare [id number] Social History Date Type Detail Facility Start: 05-26-2023 Tobacco smoking status NHIS Tobacco smoking consumption unknown [facility] Start: 05-26-2023 Tobacco use and exposure User of smokeless tobacco [facility] History of tobacco use Chews Tobacco [facility] Start: 07-07-2023 Alcohol intake Ex-drinker (finding) [facility] Start: 07-07-2023 History of Social function [facility] Start: 07-07-2023 Tobacco use panel [facility] Start: 1965 Sex Assigned At Not on file [facility] Start: 11-05-2023 Tobacco smoking status Never smoked tobacco (finding) [facility] Tobacco smoking status Smokeless tobacco user within last 30 days [facility] Functional Status Date Assessment Result Facility 11-05-2023 Functional Status N/A [facility] Hospital Discharge instructions 11-05-2023 Note Date & [...] Follow these instructions at home: Medicines Take srhf-jru-wtyeeia and prescription medicines only as told by [...] provider. Document Revised: 08/08/2021 Document Reviewed: 08/08/2021 [employer] Patient Education 2022 [employer]. Follow Up Care 10/27/2023 15:01:43 With:NITHIN TOLLIVER PA-C, URL Address: [address] [place] [address] Business (1) When: Unknown Comments:pending results of imaging/testing, will call with next steps [facility] History of Present illness Narrative 07-07-2023 [...] evaluation. ARRON Hughes documented in this encounter [facility] History of Present illness Narrative 07-07-2023 ARRON Hughes - 07/07/2023 10:45 AM EST Note Date & Type Note Facility 07-07-2023 History of Presen t illness Narrative Telemed ( error) in office appt documented in this encounter [facility] Evaluation + Plan note Note Date & Type Note Facility Evaluation + Plan note No data available for this section [facility] [place] Evaluation note Note Date & Type Note Facility Evaluation note Diagnosis History of total right hip replacement- Primary Right hip pain Pain in joint, pelvic region and thigh Mass of soft tissue of right upper extremity documented in this encounter [facility] Progress note Note Date & Type Note Facility Progress note No data available for this section [facility] Summary Purpose Family History No Family History Records FoundNo Family History Records FoundNo Family History Records FoundNo Family History Records Found No data available for this section No Family History Records FoundNo Family History Records Found Advance Directives No [...] CREATED AUTHOR AUTHOR'S ORGANIZ ATION 07/27/2022 [facility] DATE CREATED AUTHOR AUTHOR'S ORGANIZ ATION 10/01/2023 [facility] DATE CREATED AUTHOR AUTHOR'S ORGANIZ ATION 10/26/2023 [facility] DATE CREATED AUTHOR AUTHOR'S ORGANIZ ATION 11/19/2023 Vasquez Garcia [facility] DATE CREATED AUTHOR AUTHOR'S ORGANIZ ATION 12/12/2023 [facility] EPIC Reason for Visit (unrecogniz ed section and content) Reason Comments Pain Care Teams (unrecognized sec tion and content) Cottage Attendant Relationship Specialty Start Date End Date Patric Quevedo MD [address] [place] [phone] PCP - General Family Medicine 07/01/23 Shazia Barrientos NP [address] [place] [phone] Nurse Practitioner Family Medicine 04/23/23 Cottage Attendant Relationship Specialty Start Date End Date Patric Quevedo MD [address] [place] [phone] PCP - General Family Medicine 07/01/23 Shazia Barrientos NP [address] [place] [phone] Nurse Practitioner Family Medicine 04/23/23 FOR RECORDS [...] BE BASED ON THE PRIMARY CLINICAL RECORDS. [employer] provides no warranty or guarantee of the accuracy or completeness of information in this document.
== END 2023-12-17 08:45 | disposition home or self-care (01) ==
LOC: MRI 08:44
PROVIDERS: PCP Nurse Practitioner; Visit Provider Personal Emergency Response Attendant
DX: M24.812 Other specific joint derangements of left shoulder, not elsewhere classified (principal)
CPT/HCPCS: 70030; 73221

== ENCOUNTER 2024-03-04 08:45 | Outpatient (OUT) | payer MEDICARE, MEDICAID, SELFPAY ==
--- OUTSIDE RECORDS SUMMARY | 2024-03-04 08:52 | XMS_ITS | CCD ---
Author Organization [facility] Care Team Providers Care 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 Name Role Phone AICHHOLZ, ETHYLBENZENE CONVERTER HELPER SHAZIA Consulting Unavailable AICHHOLZ, ETHYLBENZENE CONVERTER HELPER SHAZIA Attending Unavailable AICHHOLZ, ETHYLBENZENE CONVERTER HELPER SHAZIA Admitting Unavailable AICHHOLZ, ETHYLBENZENE CONVERTER HELPER SHAZIA Primary Care Unavailable AICHHOLZ, ETHYLBENZENE CONVERTER HELPER SHAZIA Consulting Unavailable AICHHOLZ, ETHYLBENZENE CONVERTER HELPER SHAZIA Attending Unavailable AICHHOLZ, ETHYLBENZENE CONVERTER HELPER SHAZIA Admitting Unavailable AICHHOLZ, ETHYLBENZENE CONVERTER HELPER SHAZIA Primary Care Unavailable Aichholz SHADE MAKER, Shazia Unavailable Patric Quevedo MD Primary Care Provider [phone] MIGUELANGEL RIVERO Attending Unavailable AICHHOLZ, SHAZIA J [...] Unavailable AICHHOLZ, SHAZIA J Primary Care Physician DO Camilo Luque Primary Care Provider [phone] DEVIN Tolliver Attending Provider DEVIN TOLLIVER Attending DEVIN Boucher Attending RODDY Marc Attending Unavailable RODDY JACINTO Referring Unavailable RODDY JACINTO Referring Unavailable RODDY JACINTO Referring Unavailable JR. LORRI, JULIO CESAR Hook Attending Unavaila RODDY Buchanan Attending Unavailable RODDY JACINTO Referring Unavailable SHAZIA BARRIENTOS Attending Unavailable SHAZIA BARRIENTOS Attending Unavailable RODDY JACINTO Attending Unavailable RODDY JACINTO Attending Unavailable JR. LORRI, JULIO CESAR Hook Attending Unavaila reji NAIDU JR., JULIO CESAR Hook Attending Unavaila Jojo Landa Attending Unavailable Jojo Tolliver Admitting Unavailable Camilo Luque Primary Care Unavailable Camilo Luque Primary Care Unavailable Julio Cesar Naidu Jr Attending Unavailable Julio Cesar Naidu Jr Admitting Unavailable DO Julio Cesar Naidu Jr Attending Provider Allergies Allergy Classification Reported Allergen(s) Allergy Type Date of Onset Reaction(s) Facility (1 source) celecoxib Drug Allergy 3 [facility] Repository (7 sources) celecoxib; Translations: [CELECOXIB] Drug Allergy 3 [facility] (4 sources) Octacosanol Drug Intolerance 3 Itching [facility] (1 source) No Known Medication Allergies; Translations: [No Known Medication Allergies] Propensity to adverse reactions (disorder) [facility] Repository Medications Current Medications Medication Drug [...] 05-01-2023 05-01-2023 Episodic Other non-traumatic joint disorders (1 source) Other specific joint derangements of left shoulder, not elsewhere classified; Translations: [Other specific joint derangements of left shoulder, not elsewhere classified] Onset: 01-27-2024 Chronic Other non-traumatic joint disorders (2 sources) Pain [...] Test Name Value Interpretation Reference Range Facility MR prostate wo/w conon 12-29 MR prostate wo/w con [facility] [place] [address] MRI Report Signed Patient: Mykel Razo MR#: [id number] 3 : 1965 Acct:[id number] Age/Sex: 58 / M ADM Date: 12/29/23 Loc: MR Room: Type: [facility] Attending Dr: Jojo Tolliver PA-C Copies to: Jojo Tolliver PA-C Ordering Provider: Jojo Tolliver PA-C Date of Service: 12/29/23 MR/MR prostate wo/w con: R97.20 EXAMINATION: MR prostate wo/w con HISTORY: Elevated PSA COMPARISON: NONE TECHNIQUE: Multiparametric imaging of the prostate gland was performed with IV contrast. FINDINGS: Prostate Dimensions: 4.5 x 3.7 x 5.3 cm. Prostate Volume: 46 mL. Peripheral Zone: Heterogenous inT2 signal suggestive of prior prostatitis. No suspicious T2 or ADC map abnormality is identified to suggest prostate malignancy. Central/Transitiona l Zone: BPH changes. Seminal Vesicles: Unremarkable Neurovascular bundles: Unremarkable. Lymphadenopathy: No evidence of lymphadenopathy. Bladder: No focal lesion. Bowel: The visualized bowel is without acute abnormality. Peritoneal Cavity: No free fluid. 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 No focal abnormality. MR/MR prostate wo/w con IMPRESSION: No MRI evidence of clinically significant prostate cancer. BPH. Impression dictated by: Niels Sanders Jr., D.O.12/30/2023 11:12 AM Dictation Location: [facility]- Transcribed By: [facility] 12/30/23 1112 Dictated By: Niels Sanders Jr, DO 12/30/23 1108 Signed By: 12/30/23 1112 Normal [facility] ISTAT XRay CREon 12-29-2023 ISTAT GFR > 60.0 Normal [facility] Comment on above: Result Comment: PERF ORMED BY: [place] [address] PATHOLOGIST RAIL TRANSPORTATION OPERATOR EUN CASTRO M.D. Performed By: #### I SCRE #### [facility] [address] [place] [address] No Panel InformationOrdered By: Jojo Tolliver on 12-29-2023 Bedside Estimated GFR (eGFR) > 60.0 [facility] Whole blood creatinine measu rementOrdered By: Jojo Tolliver on 12-29-2023 Creatinine [Mass/Vol] 1.3 mg/dL Normal 0.6-1.3 [facility] Comment on above: ER/ESD physician is notified/shown all ISTAT results.Critical values may be confirmed by laboratory testing ifdeemed necessary by ER attending doctor. Result Comment: ER/E SD physician is notified/shown all ISTAT results. Critical values may be confirmed by laboratory testing if deemed necessary by ER attending doctor. Performed By: #### I SCRE #### [facility] [address] [place] [address] Transfer Inon 11-18-2023 Transfer In [id number] D#1.00TIFF Normal [facility] Lab Reportson 11-07-2023 Lab Reports [id number] 62#1.00TIFF Normal [facility] RAD - Pet Scan Reporton 10-24 RAD - Pet Scan Report [id number] 94#1.00TIFF [facility] Screenson 11-07-2023 Screens [id number] 66#1.00TIFF [facility] Screens [id number] 27#1.00TIFF [facility] Auth for Release of Medical Recordson 11-06-2023 Auth for Release of Medical Records [id number] F#1.00TIFF [facility] Ambulatory Visit Summaryon 0 11-05-2023 Ambulatory Visit Summary MYKEL RAZO :1965 Visit Date:11/05/2023 Ambulatory Visit Instructions Your Diagnosis Elevated PSA Your Care Team Attending Physician - JOJO TOLLIVER PA-C Primary Care Physician - SHAZIA [...] for choosing us for your care. Normal [facility] Patient Educationon 11-05-19 Patient Education Urology [...] these instructions at home: Medicines ? Take ixhh-xkw-fqdioiz and prescription medicines only as told by [...] include cig (more content not included)... Normal [facility] Urology Office/Clinic Noteon 11-05-2023 Urology Office/Clinic Note Chief Complaint Pt is here for elevated PSA HPI Staff Hogue is a 57 yo male new pt [...] [PSA]) PSA: 07/22/22 - 6.0 & 14.5% (TBH) 10/17/23 - 6.74 (TB) no family hx prostate cancer. [facility] n[facility]. reports hx fluctuating PSA and negative prostate biopsy in past. not sure on details. will request records from [facility]. I discussed the pros and cons of [...] recommendations once I am able to review [facility] records. Ordered: Complex E&M Add on G2211 E&M of New Patient Moderate 45-59 Min 94445 Urnls Dip Stick Auto w/o Microscopy POC 18912 2. ED (erectile dysfunction) (N52.9: Male erectile [...] E&M of New Patient Moderate 45-59 Min 97053 3. 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 diagnosed a couple months ago. surgical excision about 1 mo ago. PET 10/24/23 neg Ordered: Complex E&M Add on G2211 E&M of New Patient Moderate 45-59 Min 86700 Total time spent reviewing previous notes/results/exter nal documents, preparing the chart, conducting the encounter with the patient and family, ordering tests/medications, and documenting the encounter was _45 mins Follow-up With When Contact Information JOJO TOLLIVER PA-C, URL [address] [place] [address] [facility] (1) Additional Instructions: pending results of imaging/testing, [...] vaccine 0 (more content not included)... Normal [facility] Comment on above: Result Comment: Elec tronically Signed By: JOJO TOLLIVER PA-C\.br\Date and Time Signed: 11/05/23 15:58 [...] Correlation with thyroid function test is recommended. 1 Finalized by Miguelangel Cha MD on 10/24/2023 7:44 PM Normal [facility] Flow cytometry specialist re view Maico (Unsp spec) [Interp]on 09-16-2023 FLOW CYTOMETRY TISSUE/FLUID, NON CSF/NON BAL SEE SEPARATE REPORT, REVIEWED BY PATHOLOGIST Normal [facility] Comment on above: Performed By: #### 6 9052-9 #### [facility] ([id number]) [address] [place] [address] [address] [place] [address] Surgical Pathologyon 024 Surgical Pathology [facility] Comment on above: Result Comment: [facility] [employer] [facility] [address] [place] [address] Surgical Pathology Consultation Patient Name:MYKEL RAZO:1965 (Age: 57)Gender:MTaken:4Reported:09/19/2023hysician(s):Janette Rivero D.O. ([phone])Copy To: Rec. #:[id number]: #[id number] Final Pathologic Diagnosis Right groin lymph node, [...] with histopathologic evaluation is required for diagnosis ([id number]). Immunophenotyping antibodies tested: CD3, CD5, CD7, CD10, CD19, CD20, CD23, CD45, [place], and Lambda. Immunophenotyping Comment: Immunophenotyping has been used in this diagnostic evaluation. This test was developed and its performance characteristics determined by the [facility] Department. It has not been [...] Pooja Patton MD PhD Interpretation performed at [facility], [address] [place] [address], License number: [id number]. Clinical History Right groin mass. Gross Description Received fresh in a sterile container labeled RAZO, right groin is a focally disrupted, dark pink-poole well-circumscribed lymph node with adherent yellow-poole lobulated adipose tissue, 4.6 x 3.7 x 2.0 cm. The specimen is serially sectioned to reveal pink-poole, fleshy, glistening cut surfaces. Air Support Control Officer sections of the specimen are submitted in RPMI media to flow cytometry. Air Support Control Officer section of the lymph node is submitted in cassette A following a period of B plus fixation, and remaining serial sections submitted entirely in cassettes B-M following fixation in 10% neutral buffered formalin. Touch prep slides for Giemsa staining and routine H&E staining are submitted. (13, ns, [id number], m5) ADALGISA jkh/09/16/2023NSK Microscopic Findings Microscopic examination performed. Specimen(s) Received Right groin lymph node Fee Codes(s): 1; 56253, 26662, 39191 TISSUE CULTUREon 09-16-2023 Bacteria identified Aer cx Nom (Tiss) GRAM STAIN >25 WHITE BLOOD CELLS/LPF 0 SQUAMOUS EPITHELIAL CELLS/LPF NO ORGANISMS SEEN CULTURE RESULTS NO GROWTH 3 DAYS Normal [facility] Comment on above: Performed By: #### 6 27-0 #### [facility] ([id number]) [address] [address] COMPLETE BLOOD COUNTon 09-09 Erythrocyte distribution width (RBC) [Ratio] 13.4 % Normal 11.5-15.0 [facility] Comment on above: Performed By: #### C BC, CMP #### [facility] ([id number]) [address] [address] [place] [address] Hematocrit (Bld) [Volume fraction] 42.1 % Normal 39-49 [facility] Comment on above: Performed By: #### C BC, CMP #### [facility] ([id number]) [address] [address] Hemoglobin (Bld) [Mass/Vol] 14.5 g/dL Normal 13.0-17.0 [facility] Comment on above: Performed By: #### C BC, CMP #### [facility] ([id number]) [address] [place] [address] MCH (RBC) [Entitic mass] 29.9 pg Normal 27-34 [facility] Comment on above: Performed By: #### C CONNER, CMP #### [facility] ([id number]) [address], [address] [place] [address] MCHC (RBC) [Mass/Vol] 34.5 g/dL Normal 32-36 [facility] Comment on above: Performed By: #### C CONNER, CMP #### [facility] ([id number]) [address] [address] [place] [address] MCV (RBC) [Entitic vol] 87 fL Normal 80-100 [facility] Comment on above: Performed By: #### C CONNER, CMP #### [facility] ([id number]) [address] [address] [place] [address] Platelet mean volume (Bld) [Entitic vol] 7.3 fL Normal 7-12 [facility] Comment on above: Performed By: #### C CONNER, CMP #### [facility] ([id number]) [address] [address] [place] [address] Platelets (Bld) [#/Vol] 273 10*3/uL Normal 150-450 [facility] Comment on above: Performed By: #### C CONNER, CMP #### [facility] ([id number]) [address] [address] [place] [address] RBC COUNT 4.84 X10E12/L Normal 4.10-5.70 [facility] Comment on above: Performed By: #### C BC, CMP #### [facility] ([id number]) [address] [address] [place] [address] WBC (Bld) [#/Vol] 7.2 10*3/uL Normal 4.0-11.0 [facility] Comment on above: Performed By: #### C CONNER, CMP #### [facility] ([id number]) [address] [place] [address] COMPREHENSIVE METABOLIC PANE Mohit 09-10-2023 Albumin [Mass/Vol] 4.3 g/dL Normal 3.2-5.3 [facility] Comment on above: Performed By: #### C CONNER, CMP #### [facility] ([id number]) [address] [place] [address] ALP [Catalytic activity/Vol] 126 U/L Normal 39-130 [facility] Comment on above: Performed By: #### C CONNER, CMP #### [facility] ([id number]) [address], [address] [place] [address] ALT [Catalytic activity/Vol] 22 U/L Normal 0-40 [facility] Comment on above: Performed By: #### Monster PRIETO, CMP #### [facility] ([id number]) [address], [address] [place] [address] Anion gap [Moles/Vol] 6 mmol/L Normal 5-15 [facility] Comment on above: Performed By: #### C CONNER, CMP #### [facility] ([id number]) [address], [address] [place] [address] AST [Catalytic activity/Vol] 15 U/L Normal 0-41 [facility] Comment on above: Performed By: #### Monster PRIETO, CMP #### [facility] ([id number]) [address], [address] [place] [address] Bilirubin [Mass/Vol] 0.6 mg/dL Normal 0.3-1.2 [facility] Comment on above: Performed By: #### Monster PRIETO, CMP #### [facility] ([id number]) [address], [address] [place] [address] Calcium [Mass/Vol] 9.5 mg/dL Normal 8.5-10.5 [facility] Comment on above: Performed By: #### C CONNER, CMP #### [facility] ([id number]) [address], [address] [place] [address] Chloride [Moles/Vol] 105 mmol/L Normal 98-109 [facility] Comment on above: Performed By: #### Monster PRIETO, CMP #### [facility] ([id number]) [address] [place] [address] CO2 [Moles/Vol] 30 mmol/L Normal 22-32 [facility] Comment on above: Performed By: #### Monster PRIETO, CMP #### [facility] ([id number]) [address], [address] [place] [address] Creatinine [Mass/Vol] 1.11 mg/dL Normal 0.60-1.30 [facility] Comment on above: Result Comment: METH OD TRACEABLE TO IDMS STANDARD Performed By: #### Monster PRIETO, CMP #### [facility] ([id number]) [address], [address] [place] [address] GFR/1.73 sq M.predicted among non-blacks MDRD (S/P/Bld) [Vol rate/Area] 76 mL/min/{1.73_m2} Normal >59 [facility] Comment on above: Result Comment: Reported eGFR is based on the CKD-EPI 1 equation that does not use a race coefficient. Performed By: #### C CONNER, CMP #### [facility] ([id number]) [address], [address] [place] [address] Glucose [Mass/Vol] 86 mg/dL Normal 65-99 [facility] Comment on above: Performed By: #### Monster PRIETO, CMP #### [facility] ([id number]) [address], [address] [place] [address] Potassium [Moles/Vol] 4.1 mmol/L Normal 3.5-5.0 [facility] Comment on above: Performed By: #### C BC, CMP #### [facility] ([id number]) [address], [address] [place] [address] Protein [Mass/Vol] 7.3 g/dL Normal 6.0-8.0 [facility] Comment on above: Performed By: #### C BC, CMP #### [facility] ([id number]) [address], [address] [place] [address] Sodium [Moles/Vol] 141 mmol/L Normal 134-146 [facility] Comment on above: Performed By: #### C BC, CMP #### [facility] ([id number]) [address], [address] [place] [address] Urea nitrogen [Mass/Vol] 20 mg/dL Normal 5-23 [facility] Comment on above: Performed By: #### C BC, CMP #### [facility] ([id number]) [address], [address] [place] [address] CT PELVIS W IV CONTRASTon CT PELVIS [...] low as reasonably achievable. FINDINGS: Within the wrjlu-oq-iotd the visualized portion of the large and [...] OF REACTIVE LYMPH NODES AND THAT OF MALIGNANCY/GRANULOM ATOUS DISEASE. ADDITIONALLY THERE IS REPORT BY [employer] CARTOONIST OF HISTORY OF FARM ACCIDENT SUCH RECOMMEND [...] 07-24-2022 % Free PSA 14.5 % Normal [facility] Comment on above: Result Comment: The [...] men. Performed By: #### P SAFREE #### [facility] [address] [place] [address] Dr. Venus Guy Prostate specific Ag [Mass/Vol] 6.0 ng/mL Critically high 0.0-4.0 [facility] Comment on above: Result Comment: Angeline MELTON methodology. . According to the [place] [employer], Serum PSA should decrease and [...] disease. Performed By: #### P SAFREE #### [facility] [address] [place] [address] Dr. Venus Guy PSA, Free 0.87 ng/mL Normal N/A [facility] Comment on above: Result Comment: Angeline haro ECLIA methodology. Performed By: #### P SAFREE #### [facility] [address] [place] [address] Dr. Venus Guy GLYCOHEMOGLOBIN A1Con 2022 ADA RECOMMENDATION SEE BELOW Normal [facility] Comment on above: Result Comment: ADA RECOMMENDED LIMIT 4.0 - 6.0 ADA THERAPEUTIC TARGET < 7.0 ACTION SUGGESTED > 7.0 Performed By: #### A 1C #### [facility] [address] [place] [address] Dr. Venus Guy Glucose [Mass/Vol] 94 mg/dL Normal [facility] Comment on above: Performed By: #### A 1C #### [facility] [address] [place] [address] Dr. Venus Guy HbA1c (Bld) [Mass fraction] 4.9 % Normal 4.5-6.2 [facility] Comment on above: Performed By: #### A 1C #### [facility] [address] [place] [address] Dr. Venus Guy PROF CHEM 8 (BAS METB)on Anion gap [Moles/Vol] 10.0 mmol/L Normal [facility] Comment on above: Performed By: #### U MARTÍN, BMP #### [facility] [address] [address] [address] Venus Guy Calcium [Mass/Vol] 9.0 mg/dL Normal 8.5-10.1 [facility] Comment on above: Performed By: #### U MARTÍN, BMP #### [facility] [address] [address] [address] Venus Guy Chloride [Moles/Vol] 105 mmol/L Normal 98-107 [facility] Comment on above: Performed By: #### U MARTÍN, BMP #### [facility] [address] [place] [address] Dr. Venus Guy CO2 [Moles/Vol] 29.8 mmol/L Normal 21.0-32.0 [facility] Comment on above: Performed By: #### U MARTÍN, BMP #### [facility] [address] [place] [address] Dr. Venus Guy Creatinine [Mass/Vol] 1.15 mg/dL Normal 0.70-1.30 [facility] Comment on above: Performed By: #### U MARTÍN, BMP #### [facility] [address] [place] [address] Dr. Venus Guy EGFR-AF INDIAN >60 Normal >=60 [facility] Comment on above: Performed By: #### U MARTÍN, BMP #### [facility] [address] [place] [address] Dr. Venus Guy EGFR-NON AF INDIAN >60 Normal >=60 [facility] Comment on above: Performed By: #### U MARTÍN, BMP #### [facility] [address] [place] [address] Dr. Venus Guy Glucose [Mass/Vol] 119 mg/dL Critically high 74-106 [facility] Comment on above: Performed By: #### U MARTÍN, BMP #### [facility] [address] [place] [address] Dr. Venus Guy Potassium [Moles/Vol] 4.8 mmol/L Normal 3.5-5.1 [facility] Comment on above: Performed By: #### U MARTÍN, BMP #### [facility] [address] [address] [address] Venus Guy Sodium [Moles/Vol] 140 mmol/L Normal 136-145 [facility] Comment on above: Performed By: #### U MARTÍN, BMP #### [facility] [address] [address] [address] Venus Guy Urea nitrogen [Mass/Vol] 11.0 mg/dL Normal 7.0-18.0 [facility] Comment on above: Performed By: #### U MARTÍN, BMP #### [facility] [address] [address] [address] Venus Guy Urea nitrogen/Creatinine [Mass ratio] 9.6 mg/mg Normal [facility] Comment on above: Performed By: #### U MARTÍN, BMP #### [facility] [address] [place] [address] Dr. Venus Guy URIC ACID SERUMon 07-16-2022 Urate [Mass/Vol] 6.3 mg/dL Normal 3.5-7.2 [facility] Comment on above: Performed By: #### U MARTÍN, BMP #### [facility] [address] [place] [address] Dr. Venus Guy COMPREHENSIVE METABOLIC PANE [facility] 04-28-2021 Albumin [Mass/Vol] 4.1 g/dL Normal 3.6-5.1 [facility] Comment on above: Performed By: #### 7 600, [address]188 #### [facility] [address] Qualitative Field Project Manager: German Rivera MD Albumin/Globulin [Mass ratio] 1.6 {ratio} Normal 1.0-2.5 [facility] Comment on above: Performed By: #### 7 600, 29297 #### [facility] [address] Qualitative Field Project Manager: German Rivera MD ALP [Catalytic activity/Vol] 120 U/L Normal 35-144 [facility] Comment on above: Performed By: #### 7 600, 42845 #### [facility] of [address], [address] [place] [address] Qualitative Field Project Manager: German Rivera MD ALT [Catalytic activity/Vol] 24 U/L Normal 9-46 [facility] Comment on above: Performed By: #### 7 600, 43500 #### [facility] of [address], [address] [place] [address] Qualitative Field Project Manager: German Rivera MD AST [Catalytic activity/Vol] 15 U/L Normal 10-35 [facility] Comment on above: Performed By: #### 7 600, 68381 #### [facility] of [place] [address] Qualitative Field Project Manager: German Rivera MD Bilirubin [Mass/Vol] 0.5 mg/dL Normal 0.2-1.2 [facility] Comment on above: Performed By: #### 7 600, 43420 #### [facility] of [place] [address] Qualitative Field Project Manager: German Rivera MD BUN/CREATININE RATIO NOT APPLICABLE Normal 6-22 [facility] Comment on above: Performed By: #### 7 600, 01327 #### [facility] of [place] [address] Qualitative Field Project Manager: German Rivera MD Calcium [Mass/Vol] 9.0 mg/dL Normal 8.6-10.3 [facility] Comment on above: Performed By: #### 7 600, [id number] #### [facility] [place] [address] Qualitative Field Project Manager: German Rivera MD Chloride [Moles/Vol] 104 mmol/L Normal 98-110 [facility] Comment on above: Performed By: #### 7 600, [id number] #### [facility] of [address], [address] [place] [address] Qualitative Field Project Manager: German Rivera MD CO2 [Moles/Vol] 30 mmol/L Normal 20-32 [facility] Comment on above: Performed By: #### 7 600, [id number] #### [facility] [address], [address] [place] [address] Qualitative Field Project Manager: German Rivera MD Creatinine [Mass/Vol] 1.11 mg/dL Normal 0.70-1.33 [facility] Comment on above: Result Comment: For patients >49 years of age, the reference limit for Creatinine is approximately 13% higher for people identified as -Tuvaluan. Performed By: #### 7 600, [id number] #### [facility] [address], [address] [place] [address] Qualitative Field Project Manager: German Rivera MD eGFR NON-AFR. INDIAN 73 mL/min/1.73m2 Normal > OR = 60 [facility] Comment on above: Performed By: #### 7 600, 10543 #### [facility] [place] [address] Qualitative Field Project Manager: German Rivera MD GFR/1.73 sq M.predicted among blacks MDRD (S/P/Bld) [Vol rate/Area] 85 mL/min/{1.73_m2} Normal > OR = 60 [facility] Comment on above: Performed By: #### 7 600, 40054 #### [facility] [place] [address] Qualitative Field Project Manager: German Rivera MD Globulin (S) [Mass/Vol] 2.6 g/dL Normal 1.9-3.7 [facility] Comment on above: Performed By: #### 7 600, 71602 #### [facility] [place] [address] Qualitative Field Project Manager: German Rivera MD Glucose [Mass/Vol] 95 mg/dL Normal 65-139 [facility] Comment on above: Result Comment: Non-fasting reference interval Performed By: #### 7 600, 13195 #### [facility] [place] [address] Qualitative Field Project Manager: German Rivrea MD Potassium [Moles/Vol] 4.4 mmol/L Normal 3.5-5.[address] [facility] Comment on above: Performed By: #### 7 600, 46134 #### [facility] [address], [address] [place] [address] Qualitative Field Project Manager: German Rivera MD Protein [Mass/Vol] 6.7 g/dL Normal 6.1-8.1 [facility] Comment on above: Performed By: #### 7 600, 54399 #### [facility] [address], [address] [place] [address] Qualitative Field Project Manager: German Rivera MD Sodium [Moles/Vol] 140 mmol/L Normal 135-146 [facility] Comment on above: Performed By: #### 7 600, 52965 #### [facility] [place] [address] Qualitative Field Project Manager: German Rivera MD Urea nitrogen [Mass/Vol] 17 mg/dL Normal 7-25 [facility] Comment on above: Performed By: #### 7 600, 97704 #### [facility] [address], [address] [place] [address] Qualitative Field Project Manager: German Rivera MD LIPID PANEL, [address] Cholesterol [Mass/Vol] 167 mg/dL Normal <200 [facility] Comment on above: Order Comment: FASTI NG:NO FASTING: NO Performed By: #### 7 600, 90187 #### [facility] [place] [address] Qualitative Field Project Manager: German Rivera MD Cholesterol in HDL [Mass/Vol] 35 mg/dL Low > OR = 40 [facility] Comment on above: Order Comment: FASTI NG:NO FASTING: NO Performed By: #### 7 600, 73077 #### [facility] [place] [address] Qualitative Field Project Manager: German Rivera MD Cholesterol.total/Chol esterol in HDL [Mass ratio] 4.8 {ratio} Normal <5.0 [facility] Comment on above: Order Comment: FASTI NG:NO FASTING: NO Performed By: #### 7 600, 70194 #### [facility] [address], [address] [place] [address] Qualitative Field Project Manager: German Rivera MD LDL-CHOLESTEROL Normal [facility] [...] equation in the estimation of LDL-C. Abhijeet SS et al. JOSH. 2013;310(19): 1742-7643 (http://education.Reach.ly/faq/IWY896) Performed By: #### 7 600, 07552 #### [facility] [address], [address] [place] [address] Qualitative Field Project Manager: German Rivera MD NON HDL CHOLESTEROL 132 mg/dL (calc) High <130 [facility] Comment on above: Order Comment: FASTI NG:NO FASTING: NO Result Comment: For patients with diabetes plus 1 major ASCVD risk factor, treating to a non-HDL-C goal of <100 mg/dL (LDL-C of <70 mg/dL) is considered a therapeutic option. Performed By: #### 7 600, 77227 #### [facility] [address], [address] [place] [address] Qualitative Field Project Manager: German Rivera MD Triglyceride [Mass/Vol] 453 mg/dL High <150 [facility] Comment on above: Order Comment: FASTI NG:NO FASTING: NO Result Comment: If a non-fasting specimen was collected, consider repeat triglyceride testing on a fasting specimen if clinically indicated. Yaneli et al. J. of Clin. Lipidol. 2015;9:129-169. Performed By: #### 7 600, 93266 #### [facility] [address], [address] [place] [address] Qualitative Field Project Manager: German Rivera MD Vital Signs Date Time Vital Sign Value Performing Clinician Facility 11-05-2023 13:01-0400 Diastolic blood pressure 90 mm[Hg] JOJO SHAREE [facility] 11-05-2023 13:01-0400 Heart rate 77 /min JOJO SHAREE [facility] 11-05-2023 13:01-0400 Mean blood pressure 109 mm[Hg] JOJO SHAREE [facility] 11-05-2023 13:01-0400 Systolic blood pressure 148 mm[Hg] JOJO SHAREE [facility] 11-05-2023 13:00-0400 Body temperature 98.6 [degF] JOJO SHAREE [facility] 11-05-2023 13:00-0400 Diastolic blood pressure 88 mm[Hg] JOJO SHAREE [facility] 11-05-2023 13:00-0400 Heart rate 72 /min JOJO SHAREE [facility] 11-05-2023 13:00-0400 Respiratory rate 16 /min JOJO SHAREE [facility] 11-05-2023 13:00-0400 Systolic blood pressure 165 mm[Hg] JOJO SHAREE [facility] 07-07-2023 10:59-0500 Body height 188 cm Roddy HELLER Work Phone: [facility] 07-07-2023 10:59-0500 Body mass index (BMI) [Ratio] 32.1 kg/m2 Roddy Jacinto PA Work Phone: [facility] 07-07-2023 10:59-0500 Body weight 113.4 kg Roddy Jacinto PA Work Phone: [facility] Encounters Encounter Date Encounter Type Care Provider Facility Start: 03-29-2024 ambulatory PA-C JOJO TOLLIVER Facility:[facility] Start: 02-04-2024 End: 02-04-2024 ambulatory JULIO CESAR COBB Not Available Start: 01-27-2024 End: 01-27-2024 ambulatory Camilo Luque Facility:[facility] Start: 01-27-2024 End: 01-27-2024 Discharged Recurring DO Camilo Luque Work Phone: [facility] [place] Work Phone: Start: 12-29-2023 End: 12-29-2023 Patient encounter procedure DO Camilo Luque Work Phone: [facility] [place] Work Phone: Start: 12-29-2023 End: 12-29-2023 ambulatory DO Camilo Luque Work Phone: [facility] Work Phone: Start: 12-24-2023 End: 12-24-2023 ambulatory JULIO CESAR COBB Not Available Start: 12-08-2023 End: 12-08-2023 ambulatory RODDY JACINTO Not Available Start: 11-17-2023 End: 11-17-2023 ambulatory RODDY JACINTO Not Available Start: 11-13-2023 End: 11-13-2023 ambulatory SHAZIA BARRIENTOS Not Available Start: 11-07-2023 ambulatory PA-C JOJO TOLLIVER Fac ility:[facility] Start: 11-05-2023 End: 11-05-2023 ambulatory PA-C JOJO TOLLIVER Facility:[facility] Start: 11-05-2023 End: 11-05-2023 Patient encounter procedure JOJO TOLLIVER [facility] Start: 10-24-2023 End: 10-24-2023 ambulatory [facility] Start: 10-16-2023 End: 10-16-2023 ambulatory [facility] Start: 10-13-2023 End: 10-13-2023 [facility] Start: 10-10-2023 End: 10-10-2023 ambulatory [facility] Start: 09-30-2023 End: 09-30-2023 ambulatory DANI A SEGAL [facility] Start: 09-16-2023 End: 09-16-2023 Evaluation and management of inpatient CAMILO Ferrara [facility] Start: 09-16-2023 End: 09-16-2023 Evaluation and management of inpatient [facility] Start: 09-10-2023 Encounter for other preprocedural examination [facility] Start: 09-10-2023 End: 09-10-2023 ambulatory [facility] Start: 09-03-2023 End: 09-03-2023 ambulatory [facility] Start: 07-28-2023 End: 07-28-2023 ambulatory RODDY JACINTO Not Available Start: 07-21-2023 End: 07-21-2023 ambulatory JULIO CESAR COBB Not Available Start: 07-17-2023 End: 07-17-2023 ambulatory RODDY JACINTO Not Available Start: 07-09-2023 End: 07-09-2023 ambulatory RODDY JACINTO Not Available Start: 07-07-2023 End: 07-07-2023 Office outpatient visit 15 minutes Roddy HELLER Work Phone: [facility] Comment on above: History of total rig ht hip replacement (Primary Dx); Right hip pain; Mass of soft tissue of right upper extremity Start: 07-07-2023 End: 07-07-2023 Telemedicine consultation with patient Roddy HELLER Work Phone: [facility] Comment on above: Canceled (Other: Err or) Start: 07-07-2023 End: 07-07-2023 ambulatory RODDY [facility] Not Available Start: 07-22-2022 End: 07-23-2022 ambulatory DINORAH BARRIENTOS Facility:[facility] Start: 07-16-2022 End: 07-17-2022 ambulatory DINORAH BARRIENTOS Facility:[facility] Procedures Date Procedure Procedure Detail Performing Clinician Start: 12-29-2023 MR prostate wo/w con DO Camilo Luque Work Phone: Start: 07-22-2022 PSA screening DINORAH BARRIENTOS Comment on above: Performed By: #### P [facility] #### [facility] [address] [place] [address] Dr. Venus Guy Colonoscopy JOJO TOLLIVER History of right hip replacement JOJO TOLLIVER Plan of Treatment Date Care Activity Detail Author Start: 12-29-2023 MR Prostate WO and W contrast IV [facility] Start: 12-29-2023 MR prostate wo/w con MR prostate wo/ w con [facility] Start: 07-28-2023 End: 07-28-2023 Patient encounter procedure 07/28/2023 9:45 AM EST Office Visit [facility] [address] [facility] [address] [place] [id number] Roddy Jacinto PA [address] [facility] [address] [place] [address] [facility] Start: 07-07-2023 End: 07-07-2024 US LOWER EXTREMITY NON-VASC RIGHT US LOWER EXTREMITY NON-VASC RIGHT Imaging Routine Mass of soft tissue of right upper extremity Expected: 07/07/2023 (Approximate), Expires: 07/07/2024 [facility] Work Phone: Comment on above: Expected: 07/07/2023 (Approximate), Expires: 07/07/2024 Start: 01-24-2023 Influenza vaccination Influenza Vacc ine (#1) [facility] Start: 1965 Medicare Annual Wellness (AWV) Medicare Annual Wellness (AWV) [facility] Start: 1965 Screening for malignant neoplasm of colon [facility] XR Hip - right 3 Views XR hip ri ght 2 or 3 views Imaging Routine Right hip pain 07/07/2023 10:42 AM EST [facility] Immunizations Immunization Date Immunization Notes Care Provider Christopher terrazas 05-29-2022 influenza, injectabl e, quadrivalent, preservative free Roddy HELLER Work Phone: [facility] 05-29-2022 pneumococcal conjuga te vaccine, 13 valent Roddy HELLER Work Phone: [facility] 05-29-2022 influenza virus vaccine, unspecified formulation Roddy HELLER Work Phone: [facility] 03-11-2021 influenza virus vaccine, unspecified formulation JOJO TOLLIVER [facility] 03-11-2021 influenza, injectabl e, quadrivalent, preservative free Roddy HELLER Work Phone: [facility] 03-11-2021 influenza, seasonal, injectable DO Camilo Luque Work Phone: [facility] 02-01-2021 SARS-CoV-2 (COVID-19 ) mRNA BNT-162b2 vax JOJO TOLLIVER [facility] 01-05-2021 SARS-CoV-2 (COVID-19 ) mRNA BNT-162b2 vax JOJO ANDERSONRY [facility] 02-18-2017 influenza virus vaccine, unspecified formulation JOJO TOLLIVER [facility] 02-18-2017 influenza, injectabl e, quadrivalent, contains preservative Roddy HELLER Work Phone: [facility] 02-18-2017 influenza, injectabl e, quadrivalent, preservative free DO Camilo Luque Work Phone: [facility] 05-23-2015 influenza virus vaccine, unspecified formulation JOJO TOLLIVER [facility] 05-23-2015 influenza, injectabl e, quadrivalent, preservative free Roddy HELLER Work Phone: [facility] 06-24-2014 zoster vaccine, live Roddy HELLER Work Phone: [facility] 04-06-2014 influenza, injectabl e, quadrivalent, contains preservative DO Camilo Luque Work Phone: [facility] 04-14-2013 influenza, injectabl e, quadrivalent, contains preservative DO Camilo Luque Work Phone: [facility] Payers Date Payer Category Payer Self-pay [id number] 2022 Medicare [employer] MEDICARE ADVANTAGE [employer] MEDICARE [id number] 2022-Present [address] [address] [place] [address] [id number] 2017 Medicaid MEDICAID [facility] [id number] 2017-Present [phone] [address] [place] [address] Medicaid [id number] 1963 Unknown [id number] 2.16.840.1.375407.3.579.2.593 1963 Unknown [id number] 2.16.840.1.303298.3.579.2.593 1963 Unknown [id number] 2.16.840.1.737882.3.579.2.1285 1963 Unknown [id number] 2.840.1.013852.3.579.2.1285 1963 Unknown [id number] 2..840.1.744680.3.579.2.1285 1963 Unknown [id number] 2.840.1.695665.3.579.2.1285 1963 Unknown [id number] 2.840.1.124115.3.579.2.1285 1963 Unknown [id number] 2.840.1.960778.3.579.2.1285 1963 Unknown [id number] 2.840.1.259368.3.579.2.1285 1963 Unknown [id number] 2.840.1.306089.3.579.2.1285 1963 Unknown [id number] 2.840.1.860540.3.579.2.1285 1963 Unknown [id number] 2.840.1.352253.3.579.2.1285 1963 Unknown [id number] 2.840.1.596182.3.579.2.1285 1963 Unknown [id number] 840.1.150856.3.579.2. 1963 Unknown [id number] 2.840.1.843092.3.579.2. 1963 Unknown [id number] 2.840.1.516910.3.579.2.1258 1963 Unknown [id number] 2.840.1.878545.3.579.2.1258 1963 Unknown [id number] 2.840.1.016774.3.579.2.1258 1963 Unknown [id number] 2.16.840.1.739567.3.579.2.9 1963 Unknown [id number] 2.16.840.1.150563.3.579.2.1258 1963 Unknown [id number] 2.16.840.1.677935.3.579.2.1258 1963 Unknown [id number] 2.16.840.1.348393.3.579.2.1258 1963 Unknown [id number] 2.16.840.1.271623.3.579.2.1258 1963 Unknown [id number] 2.16.840.1.428775.3.579.2.1258 1963 Unknown [id number] 2.16.840.1.995504.3.579.2.1258 1963 Unknown [id number] 2.16840.1.846995.3.579.2.1258 1963 Unknown [id number] 2.16.840.1.611965.3.579.2.1258 1963 Unknown [id number] 2.16.840.1.518951.3.579.2.1259 1959 Medicaid [id number] 1961 Medicare [id number] Medicare Medicare [id number] Unknown [id number] 2.16840.1.067587.3.579.2.531 Social History Date Type Detail Facility Start: 05-26-2023 Tobacco smoking status NHIS Tobacco smoking consumption unknown [facility] Start: 05-26-2023 Tobacco use and exposure User of smokeless tobacco [facility] History of tobacco use Chews Tobacco [facility] Start: 07-07-2023 Alcohol intake Ex-drinker (finding) [facility] Start: 07-07-2023 History of Social function [facility] Start: 07-07-2023 Tobacco use panel [facility] Start: 1965 Sex Assigned At Not on file [facility] Start: 11-05-2023 Tobacco smoking status Never smoked tobacco (finding) [facility] Tobacco smoking status Smokeless tobacco user within last 30 days [facility] Start: 12-17-2017 Tobacco smoking status NHIS Ex-smoker (finding) [facility] Start: 1965 Sex Assigned At Male [facility] Functional Status Date Assessment Result Facility 11-05-2023 Functional Status N/A [facility] Discharge instructions 11-05-2023 Note Date [...] Follow these instructions at home: Medicines Take [id number]-[id number] and prescription medicines only as told by [...] provider. Document Revised: 08/08/2021 Document Reviewed: 08/08/2021 SmartCloud Patient Education 2022 [employer]. Follow Up Care 10/27/2023 15:01:43 With:SHAREE BELTRAN, JOJO Haro, URL Address: [address] [place] [address] Business (1) When: Unknown Comments:pending results of imaging/testing, will call with next steps [facility] History of Present illness Narrative 07-07-2023 ARRON [...] evaluation. ARRON Hughes documented in this encounter [facility] History of Present illness Narrative 07-07-2023 ARRON Hughes - 07/07/2023 10:45 AM EST Note Date & Type Note Facility 07-07-2023 History of Presen t illness Narrative Telemed ( error) in office appt documented in this encounter [facility] Evaluation + Plan note Note Date & Type Note Facility Evaluation + Plan note No data available for this section [facility] Evaluation note Note Date & Type Note Facility Evaluation note Diagnosis History of total right hip replacement- Primary Right hip pain Pain in joint, pelvic region and thigh Mass of soft tissue of right upper extremity documented in this encounter [facility] Evaluation note Note Date & Type Note Facility Evaluation note No assessment information availa [facility] Work Phone: Progress note Note Date & Type Note Facility Progress note No data available for this section [facility] Summary Purpose Family History Relationship Condition Age at Onset Recorded Date/T ruel father Heart disease Unknown grandparent Unknown Malignant neoplasm Unknown grandparent Family history of emphysema Unknown Unknown grandparent Myocardial infarction Unknown grandparent Malignant neoplasm Unknown mother Hypertension Unknown sister Hypertension Unknown Advance Directives Advance Directive Response Recorded Date/ Time Advance Directives No January 11:12am Chief Complaint and Reason for Visit Chief Complaint r97.20 Chief Complaint r97.20 L shoulder frozen/ reminder call the day b4 Additional Source Comments (unrecognized sect ion and content) No Status Records FoundNo Status Records FoundNo Status Records FoundNo Status Records FoundNo Status Records FoundNo Status Records FoundNo Status Records Found INFORMATION SOURCE (unrecogn ized section and content) DATE CREATED AUTHOR 04/29/2021 [facility] DATE CREATED AUTHOR AUTHOR'S ORGANIZ ATION 07/27/2022 [facility] DATE CREATED AUTHOR AUTHOR'S ORGANIZ ATION 10/01/2023 [facility] DATE CREATED AUTHOR AUTHOR'S ORGANIZ ATION 10/26/2023 [facility] DATE CREATED AUTHOR AUTHOR'S ORGANIZ ATION 01/04/2024 [facility] DATE CREATED AUTHOR AUTHOR'S ORGANIZ ATION 02/06/2024 [facility] EP[facility] DATE CREATED AUTHOR AUTHOR'S ORGANIZ ATION 02/27/2024 [facility] Reason for Visit (unrecogniz ed section and content) Reason Comments Pain Care Teams (unrecognized sec tion and content) 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 Relationship Specialty Start Date End Date Patric Quevedo MD [address] [place] [phone] PCP - General Family Medicine 07/01/23 Shazia Barrientos NP [address] [place] [address] Nurse Practitioner Family Medicine 04/23/23 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 Relationship Specialty Start Date End Date Patric Quevedo MD [address] [place] [phone] PCP - General Family Medicine 07/01/23 Shazia Barrientos NP [address] [place] [address] Nurse Practitioner Family Medicine 04/23/23 Team Status: Active Member Role Status Dates Camilo Luque , Primary Care Provider Active Team Status: Inactive Member Role Status Dates Camilo Luque , Primary Care Provider Active S tart: December 29, 2023 End: December 29, 2023 Jojo Tolliver PA-C Attending Provider Active Start: December 29, 2023 End: December 29, 2023 Team Status: Inactive Member Role Status Dates Camilo Luque , Primary Care Provider Active S tart: January 27, 2024 End: January 27, 2024 Julio Cesar Naidu Jr, DO Attending Provider Active Start: January 27, 2024 End: January 27, 2024 Goals (unrecognized section and content) Goals may be documented in a n alternate section FOR RECORDS PERTAINING TO PATIENTS WHO ARE [...] BE BASED ON THE PRIMARY CLINICAL RECORDS. [employer] provides no warranty or guarantee of the accuracy or completeness of information in this document.
[2024-03-04 10:17] LABS: Thyroid Stimulating Hormone 3.069 uIU/mL (0.358-3.740)
[2024-03-04 10:22] LABS: Free T4 0.84 ng/dL (0.76-1.46)
== END 2024-03-04 08:46 | disposition home or self-care (01) ==
LOC: LAB 08:47
PROVIDERS: PCP Nurse Practitioner; Visit Provider Nurse Practitioner
DX: E03.9 Hypothyroidism, unspecified (principal)
CPT/HCPCS: 36415; 84439; 84443

== ENCOUNTER 2024-03-25 16:08 | Outpatient (OUT) | payer MEDICARE, MEDICAID, SELFPAY ==
--- OUTSIDE RECORDS SUMMARY | 2024-03-25 16:16 | XMS_ITS | CCD ---
Author Organization [facility] Care Team Providers Care Machinist General Name Role Phone AICHHOLZ, DATA INTEGRATION ARCHITECT SHAZIA Consulting Unavailable AICHHOLZ, DATA INTEGRATION ARCHITECT SHAZIA Attending Unavailable AICHHOLZ, DATA INTEGRATION ARCHITECT SHAZIA Admitting Unavailable AICHHOLZ, DATA INTEGRATION ARCHITECT SHAZAI Primary Care Unavailable AICHHOLZ, DATA INTEGRATION ARCHITECT SHAZIA Consulting Unavailable AICHHOLZ, DATA INTEGRATION ARCHITECT SHAZIA Attending Unavailable AICHHOLZ, DATA INTEGRATION ARCHITECT SHAZIA Admitting Unavailable AICHHOLZ, DATA INTEGRATION ARCHITECT SHAZIA Primary Care Unavailable Aichholz BRIM AND CROWN PRESSER, Shazia Unavailable Patric Quevedo MD Primary Care [...] Physician DO Camilo Luque Primary Care Provider DEVIN Tolliver Attending Provider DEVIN TOLLIVER Attending DEVIN Farley Attending Jojo Farley Attending Unavailable Jojo Tolliver Admitting Unavailable Camilo Luque Primary Care Unavailable Camilo Luque Primary Care Unavailable Julio Cesar Naidu Jr Attending Unavailable Elysia Carl, Julio Cesar Admitting Unavailable DO Julio Cesar Naidu Jr Attending Provider Iliana ARAGON, Shazia Unavailable RODDY JACINTO Attending Unavailable RODDY JACINTO Referring Unavailable RODDY JACINTO Referring Unavailable RODDY JACINTO Referring Unavailable JR. NAIDU GEORGE C Attending Unavaila RODDY Buchanan Attending Unavailable RODDY JACINTO Referring Unavailable SHAZIA BARRIENTOS Attending Unavailable SHAZIA BARRIENTOS Attending Unavailable RODDY JACINTO Attending Unavailable RODDY JACINTO Attending Unavailable JR. ELYSIA, JULIO CESAR Hook Attending Unavaila reji NAIDU JR., JULIO CESAR Hook Attending Unavaila ble ILIANA, SHAZIA Attending Unavailable Allergies Allergy Classification Reported Allergen(s) Allergy Type Date of Onset Reaction(s) Facility (1 source) celecoxib Drug Allergy 3 [facility] Repository (11 sources) celecoxib; Translations: [CELECOXIB] Drug Allergy 3 [facility] (8 sources) Octacosanol Drug Intolerance 3 Itching [facility] (1 source) No Known Medication Allergies; Translations: [No Known Medication Allergies] Propensity to adverse reactions (disorder) [facility] Repository Medications Current Medications Medication Drug Class(es) Dates Sig (Normalized) Sig (Original) allopurinol 100 mg oral tablet (5 sources) Xanthine Oxidase Inhibitor Start: 08-05-2019 take 1 tablet by mouth twice daily allopurinol 100 mg Tab 100 mg = 1 tab(s), Oral, BID Start Date: 08/05/19 Status: Ordered atorvastatin 20 mg oral tablet (11 sources) HMG-CoA Reductase Inhibitor Start: 11-24-2023 End: 06-06-2024 take 1 tablet by mouth at bedtime atorvastatin (Lipitor) 20 MG tablet Indications: Hyperlipidemia, unspecified hyperlipidemia type (CMS/HCC) Take 1 tablet (20 mg) by mouth at bedtime 90 tablet 1 03/08/2024 06/06/2024 Active Start: 08-05-2019 take 1 tablet by tonio th once daily atorvastatin 20 mg Tab 20 mg = 1 tab(s), Oral, Daily Start Date: 08/05/19 Status: Ordered celecoxib 200 mg oral capsule (8 sources) Nonsteroidal Anti-inflammatory Drug take 1 capsule by mouth in the morning celecoxib (CeleBREX) 200 MG capsule Take 200 mg by mouth in the morning. Active escitalopram 20 mg oral tablet (11 sources) Serotonin Reuptake Inhibitor Start: 024 End: 025 take 1 tablet by mouth once daily escitalopram (Lexapro) 20 MG tablet Indications: Anxiety Take 1 tablet (20 mg) by mouth Daily 90 tablet 1 03/08/2024 06/06/2024 Active Start: 08-05-2019 take 1 tablet by tonio th once daily escitalopram 20 mg Tab 20 mg = 1 tab(s), Oral, Daily Start Date: 08/05/19 Status: Ordered fexofenadine hydrochloride 180 mg oral tablet (10 sources) Histamine-1 Receptor Antagonist Start: 11-24-2023 End: 06-06-2024 take 1 tablet by mouth once daily fexofenadine (Lakeisha) 180 MG tablet Indications: Environmental and seasonal allergies Take 1 tablet (180 mg) by mouth Daily 90 tablet 1 03/08/2024 06/06/2024 Active take 1 tablet by mouth in the mo rning fexofenadine (Lakeisha) 180 MG tablet Take 180 mg by mouth in the morning. 0 Active fluticasone propionate 0.05 mg/actuat metered dose nasal spray (10 sources) Corticosteroid Start: 11-24-2023 End: 06-06-2024 take 2 spray(s) nasal route once daily fluticasone (Flonase) 50 MCG/ACT nasal spray Indications: Environmental and seasonal allergies Administer 2 sprays into each nostril Daily Shake gently. Before first use, prime pump. After use, clean tip and replace cap. 48 g 1 03/08/2024 06/06/2024 Active take 2 spray(s) nasa l route in the morning fluticasone (Flonase) 50 MCG/ACT nasal spray Administer 2 sprays into each nostril in the morning. Shake gently. Before first use, prime pump. After use, clean tip and replace cap.. 0 Active levothyroxine sodium 0.112 mg oral tablet (11 sources) l-Thyroxine Start: 11-24-2023 End: 06-06-2024 take 1 tablet by mouth once daily levothyroxine (Synthroid, Levoxyl) 112 MCG tablet Indications: Hypothyroidism, unspecified type (CMS/HCC) Take 1 tablet (112 mcg) by mouth Daily 90 tablet 1 03/08/2024 06/06/2024 Active Start: 08-05-2019 take 1 capsule by mo [facility] once daily levothyroxine 112 mcg (0.112 mg) oral capsule 112 microgram = 1 cap(s), Oral, Daily Start Date: 08/05/19 Status: Ordered take 1 tablet by tonio before mealtime levothyroxine (Synthroid, Levoxyl) 112 MCG tablet Take 112 mcg by mouth in the morning. Take before meals. 0 Active meloxicam 15 mg oral tablet (1 source) Nonsteroidal Anti-inflammatory Drug Start: 08-05-2019 take 1 tablet by mouth once daily meloxicam 15 mg oral tablet 15 mg = 1 tab(s), Oral, Daily Start Date: 08/05/19 Status: Ordered omeprazole 20 mg delayed release oral capsule (4 sources) Proton Pump Inhibitor take 1 capsule by mouth in the morning omeprazole (PriLOSEC) [address] capsule Take 20 mg by mouth in the morning. Active rOPINIRole 0.25 mg oral tablet (11 sources) Nonergot Dopamine Agonist Start: 11-24-2023 End: 06-06-2024 take 1 tablet by mouth at bedtime rOPINIRole (Requip) 0.25 MG tablet Indications: Restless legs Take 1 tablet (0.25 mg) by mouth at bedtime 90 tablet 1 03/08/2024 06/06/2024 Active Start: 08-05-2019 take 1 tablet by tonio three times daily ropinirole 0.25 mg Tab 0.25 mg = 1 tab(s), Oral, TID Start Date: 08/05/19 Status: Ordered tiZANidine 4 mg oral tablet (5 sources) Central alpha-2 Adrenergic Agonist Start: 10-14-2023 tiZANidine (Zanaflex) 4 MG tablet Indications: Trapezius strain, left, initial encounter 4mg at bedtime prn muscle spasms/tighntess 30 tablet 10/14/2023 Active traZODone hydrochloride 50 mg oral tablet (11 sources) Serotonin Reuptake Inhibitor Start: 11-24-2023 End: 06-06-2024 take 2 tablets by mouth at bedtime traZODone (Desyrel) 50 MG tablet Indications: Other insomnia Take 2 tablets (100 mg) by mouth at bedtime 180 tablet 1 03/08/2024 06/06/2024 Active Start: 11-05-2023 traZODONE 50 m g Tab Refills(s) 0 Start Date: 11/05/23 Status: Ordered Start: 05-13-2023 End: 08-11-2023 take 2 tablets by mouth at bedtime traZODone (Desyrel) 50 MG tablet Indications: Other insomnia Take 2 tablets (100 mg) by mouth at bedtime Take 100 mg by mouth at bedtime 180 tablet 0 05/13/2023 08/11/2023 Active Problems Active Problems Problem Classification Problem Date Documented Da te Episodic/Chronic Anxiety disorders (11 sources) Anxiety; Translations: [Anxiety disorder, unspecified] Onset: 05-05-2023 05-05-2023 Chronic Disorders of lipid metabolism (11 sources) Hyperlipidemia; Translations: [Hyperlipidemia, unspecified] Onset: 05-05-2023 05-05-2023 Chronic Gout and other crystal arthropathies (13 sources) Gout, unspecified; Translations: [Gout] Onset: 07-16-2022 Chronic Immunizations and screening for infectious disease (4 sources) Needs influenza immunization; Translations: [Encounter for immunization] Onset: 03-08-2024 03-08-2024 Episodic Lymphadenitis (1 source) Localized enlarged lymph nodes; Translations: [Localized enlarged lymph nodes] Onset: 09-16-2023 Episodic Non-Hodgkin`s lymphoma (12 sources) Non-Hodgkin lymphoma, unspecified, unspecified site; Translations: [Non-Hodgkin lymphoma, unspecified, lymph nodes of inguinal region and lower limb] Onset: 09-30-2023 Resolved: 11-13-2023 Chronic Osteoarthritis (20 sources) Osteoarthritis of right hip joint; Translations: [Unilateral primary osteoarthritis, right hip] Onset: 05-01-2023 05-01-2023 Chronic Other connective tissue disease (2 sources) History of total replacement of right hip joint; Translations: [Presence of right artificial hip joint] 07-07-2023 Chronic Other connective tissue disease (8 sources) History of total hip arthroplasty; Translations: [...] Other hereditary and degenerative nervous system conditions (10 sources) Restless legs; Translations: [Restless legs syndrome] Onset: 05-05-2023 05-05-2023 Chronic Other male genital disorders (6 sources) Male erectile dysfunction, unspecified; Translations: [Erectile dysfunction] Onset: 11-05-2023 Chronic Other non-traumatic joint disorders (1 source) Other specific joint derangements of left shoulder, not elsewhere classified; Translations: [Other specific joint derangements of left shoulder, not elsewhere classified] Onset: 01-27-2024 Chronic Other non-traumatic joint disorders (2 sources) Pain in right hip joint; Translations: [Pain in right hip] 07-07-2023 Episodic Other nutritional; endocrine; and metabolic disorders (1 source) Obesity, unspecified; Translations: [Obesity, unspecified] Onset: 09-03-2023 Chronic Other nutritional; endocrine; and metabolic disorders (1 source) Adult-onset obesity 08-06-2019 Chronic Other nutritional; endocrine; and metabolic disorders (2 sources) Body mass index 40+ - severely obese 08-06-2019 Chronic Other nutritional; endocrine; and metabolic disorders (6 sources) Body mass index 30+ - obesity; Translations: [Body mass index (BMI) 39.0-39.9, adult] Onset: 10-13-2023 01-21-2024 Chronic Other nutritional; endocrine; and metabolic disorders (5 sources) Obesity caused by energy imbalance; Translations: [Morbid (severe) obesity due to excess calories] Onset: 03-08-2024 03-08-2024 Chronic Other upper respiratory disease (10 sources) Allergic disposition; Translations: [Other allergic rhinitis] Onset: 05-05-2023 05-05-2023 Chronic Residual codes; unclassified (2 sources) Insomnia; Translations: [Other insomnia] 03-08-2024 Chronic Residual codes; unclassified (4 sources) Tobacco user; Translations: [Tobacco use] Onset: 05-05-2023 05-05-2023 Episodic Residual codes; unclassified (1 source) Chews tobacco 08-05-2019 Episodic Thyroid disorders (11 sources) Hypothyroidism; Translations: [Hypothyroidism, unspecified] Onset: 05-05-2023 05-05-2023 Chronic Unclassified (1 source) POST-OP VISIT Onset: 09-30-2023 Unclassified (1 source) Mass Onset: 09-03-2023 Unclassified (1 source) Lymphoma Onset: 10-16-2023 Unclassified (1 source) right groin mass Onset: 09-16-2023 Past or Other Problems Problem Classification Problem Date Documented Date Episodic/Chronic Biliary tract disease (8 sources) Polyp of gallbladder; Translations: [Cholesterolosis of gallbladder] Onset: 05-05-2023 05-05-2023 Episodic Cardiac dysrhythmias (5 sources) Atrial fibrillation; Translations: [Unspecified atrial fibrillation] Onset: 11-13-2023 Resolved: 11-13-2023 11-05-2023 Chronic Diabetes mellitus without complication (9 sources) Other abnormal glucose; Translations: [Increased glucose level] Onset: 07-25-2022 05-05-2023 Episodic Mood disorders (4 sources) Mood disorders Onset: 11-13-2023 11-13-2023 Other nervous system disorders (8 sources) Antalgic gait; Translations: [Other abnormalities of gait and mobility] Onset: 05-01-2023 05-01-2023 Episodic Other non-traumatic joint disorders (8 sources) Pain in right knee; Translations: [Pain in joint, lower leg] Onset: 05-05-2023 05-05-2023 Episodic Other screening for suspected conditions (not mental disorders or infectious disease) (20 sources) Elevated prostate specific antigen [PSA]; Translations: [Encounter for screening for malignant neoplasm of prostate] Onset: 07-22-2022 Episodic Residual codes; unclassified (8 sources) Insomnia; Translations: [Insomnia, unspecified] Onset: 05-05-2023 05-05-2023 Episodic Sprains and strains (4 sources) Strain of left trapezius muscle; Translations: [Strain of other muscles, fascia and tendons at shoulder and upper arm level, left arm, initial encounter] Onset: 10-13-2023 10-13-2023 Episodic Results Test Name Value Interpretation Reference Range Facility ALL THYROID STIM HORMONEon 1 TSH Qn 3.069 m[IU]/L [facility] e MR prostate wo/w conon 12-29 MR prostate wo/w con [facility] [place] [address] MRI Report Signed Patient: Mykel Razo MR#: [id number] 3 : 1965 Acct:[id number] Age/Sex: 58 / M ADM Date: 12/29/23 Loc: MR Room: Type: [facility] Attending Dr: Jojo Tolliver PA-C Copies [...] Sanders Jr., D.O.12/30/2023 11:12 AM Dictation Location: [place] [address] Transcribed By: [facility] 12/30/23 1112 Dictated By: Niels Sanders Jr, DO 12/30/23 1108 Signed By: 12/30/23 1112 Normal [facility] ISTAT XRay CREon 12-29-2023 ISTAT GFR > 60.0 Normal [facility] Comment on above: Result Comment: PERF ORMED BY: [facility] [address] [place] [address] PATHOLOGIST [employer] ENFORCEMENT OFFICER EUN CASTRO M.D. Performed By: #### I SCRE #### [facility] [address] No Panel InformationOrdered By: Jojo Tolliver on 12-29-2023 Bedside Estimated GFR (eGFR) > 60.0 [facility] Whole blood creatinine measu rementOrdered By: Jojo Tolliver on 12-29-2023 Creatinine [Mass/Vol] 1.3 mg/dL Normal 0.6-1.3 [facility] Comment on above: ER/ESD physician is notified/shown all ISTAT results.Critical values may be confirmed by laboratory testing ifdeemed necessary by ER attending doctor. Result Comment: ER/E SD physician is notified/shown all ISTAT results. Critical values may be confirmed by laboratory testing if deemed necessary by ER attending doctor. Performed By: #### I SCRE #### [facility] [address] [place] [address] Transfer Inon 11-18-2023 Transfer In [id number] D#1.00TIFF Normal [facility] Lab Reportson 11-07-2023 Lab Reports [id number] 62#1.00TIFF Normal [facility] RAD - Pet Scan Reporton 10-24 RAD - Pet Scan Report [id number] 94#1.00TIFF Normal [facility] Screenson 11-07-2023 Screens [id number] 66#1.00TIFF Normal [facility] Screens [id number] 27#1.00TIFF [facility] Auth for Release of Medical Recordson 11-06-2023 Auth for Release of Medical Records [id number] F#1.00TIFF [facility] Ambulatory Visit Summaryon 0 11-05-2023 Ambulatory [...] you for choosing us for your care. Cody Ovalle [facility] Patient Educationon 11-05-19 Patient Education Urology [...] these instructions at home: Medicines ? Take bthu-ajq-gkobdue and prescription medicines only as told by [...] include cig (more content not included)... Normal [facility] Urology Office/Clinic Noteon 11-05-2023 Urology Office/Clinic [...] [PSA]) PSA: 07/22/22 - 6.0 & 14.5% ([facility]) 10/17/23 - 6.74 ([facility]) no family hx prostate cancer. CRESC[facility] nl. reports hx fluctuating PSA and negative prostate biopsy in past. not sure on details. [facility]. I discussed the pros and cons of [...] [facility]. Ordered: Complex E&M Add on G2211 E&M of New Patient Moderate 45-59 Min 37582 Urnls Dip Stick Auto w/o Microscopy POC 75744 2. ED (erectile dysfunction) (N52.9: Male erectile dysfunction, unspecified) ESPERANZA 15 did not have a chance to discuss this today as we spent the majority of our time discussing #1 and attempting to find previous PSAs (checked [facility], [facility], [facility], [facility] without success beyond the 2 values listed). will address in future. Ordered: Complex E&M Add on G2211 E&M of New Patient Moderate 45-59 Min 96771 3. 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 diagnosed a couple months ago. surgical excision about 1 mo ago. PET 10/24/23 neg Ordered: Complex E&M Add on G2211 E&M of New Patient Moderate 45-59 Min 96827 Total time spent reviewing previous notes/results/exter nal documents, preparing the chart, conducting the encounter with the patient and family, ordering tests/medications, and documenting the encounter was _45 mins Follow-up With When Contact Information SHAREE BELTRAN, JOJO Haro, URL [address] [place] [address] Business (1) Additional Instructions: pending [...] vaccine 0 (more content not included)... Normal [facility] Comment on above: Result Comment: Elec tronically Signed By: JOJO TOLLIVER PA-C\.corey\Date and Time Signed: 11/05/23 15:58 EDT PET [...] Cha MD on 10/24/2023 7:44 PM Normal [facility] Flow cytometry specialist re view Maico (Unsp spec) [Interp]on 09-16-2023 FLOW CYTOMETRY TISSUE/FLUID, NON CSF/NON BAL SEE SEPARATE REPORT, REVIEWED BY PATHOLOGIST Normal [facility] Comment on above: Performed By: #### 6 9052-9 #### [facility] ([id number]) [address] [place] [address] [place] [address] Surgical Pathologyon 024 Surgical Pathology Normal [facility] Comment on above: Result Comment: [facility] Medicine [address] [place] [address] Surgical Pathology Consultation Patient Name:MYKEL RAZO:1965 (Age: 57)Gender:MTaken:09/16/2023eported:09/19/2023hysician(s):Janette Rivero D.O. ([phone])Copy To: Rec. #:[id number]: #[id number] Final Pathologic Diagnosis Right groin lymph node, [...] with histopathologic evaluation is required for diagnosis ([id number]). Immunophenotyping antibodies tested: CD3, CD5, CD7, CD10, CD19, CD20, CD23, CD45, Shiro, and Lambda. Immunophenotyping Comment: Immunophenotyping has been used in this diagnostic evaluation. This test was developed and its performance characteristics [facility]. It has not been [...] Pooja Patton MD PhD Interpretation performed at [facility], [address] [place] [id number], License number: [id number]. Clinical History Right groin mass. Gross Description Received fresh in a sterile container labeled RAZO, right groin is a focally disrupted, dark pink-poole well-circumscribed lymph node with adherent yellow-poole lobulated adipose tissue, 4.6 x 3.7 x 2.0 cm. The specimen is serially sectioned to reveal pink-poole, fleshy, glistening cut surfaces. Receiving Tank Operator sections of the specimen are submitted in RPMI media to flow cytometry. Receiving Tank Operator section of the lymph node is submitted in cassette A following a period of B plus fixation, and remaining serial sections submitted entirely in cassettes B-M following fixation in 10% neutral buffered formalin. Touch prep slides for Giemsa staining and routine H&E staining are submitted. (13, ns, [id number], m5) ADALGISA jkh/09/16/2023NSK Microscopic Findings Microscopic examination performed. Specimen(s) Received Right groin lymph node Fee Codes(s): 1; 11475, 00447, 38893 TISSUE CULTUREon 09-16-2023 Bacteria identified Aer cx Nom (Tiss) GRAM STAIN >25 WHITE BLOOD CELLS/LPF 0 SQUAMOUS EPITHELIAL CELLS/LPF NO ORGANISMS SEEN CULTURE RESULTS NO GROWTH 3 DAYS Normal [facility] Comment on above: Performed By: #### 6 27-0 #### [facility] ([id number]) [address] [address] COMPLETE BLOOD COUNTon 09-09 Erythrocyte distribution width (RBC) [Ratio] 13.4 % Normal 11.5-15.0 [facility] Comment on above: Performed By: #### C BC, CMP #### [facility] ([id number]) [address] [address] Hematocrit (Bld) [Volume fraction] 42.1 % Normal 39-49 [facility] Comment on above: Performed By: #### C BC, CMP #### [facility] ([id number]) [address] [address] Hemoglobin (Bld) [Mass/Vol] 14.5 g/dL Normal 13.0-17.0 [facility] Comment on above: Performed By: #### C BC, CMP #### [facility] ([id number]) [address] [address] MCH (RBC) [Entitic mass] 29.9 pg Normal 27-34 [facility] Comment on above: Performed By: #### C BC, CMP #### [facility] [facility] ([id number]) [address], [address] [place] [address] MCHC (RBC) [Mass/Vol] 34.5 g/dL Normal 32-36 [facility] Comment on above: Performed By: #### C BC, CMP #### [facility] ([id number]) [address], [address] [place] [address] MCV (RBC) [Entitic vol] 87 fL Normal 80-100 [facility] Comment on above: Performed By: #### C BC, CMP #### [facility] ([id number]) [address], [address] [place] [address] Platelet mean volume (Bld) [Entitic vol] 7.3 fL Normal 7-12 [facility] Comment on above: Performed By: #### C CONNER, CMP #### [facility] ([id number]) [address], [address] [place] [address] Platelets (Bld) [#/Vol] 273 10*3/uL Normal 150-450 [facility] Comment on above: Performed By: #### C BC, CMP #### [facility] ([id number]) [address], [address] [place] [address] RBC COUNT 4.84 X10E12/L Normal 4.10-5.70 [facility] Comment on above: Performed By: #### C BC, CMP #### [facility] ([id number]) [address] [address] [place] [address] WBC (Bld) [#/Vol] 7.2 10*3/uL Normal 4.0-11.0 [facility] Comment on above: Performed By: #### C BC, CMP #### [facility] ([id number]) [address], [address] [place] [address] COMPREHENSIVE METABOLIC PANE Mohit 09-10-2023 Albumin [Mass/Vol] 4.3 g/dL Normal 3.2-5.3 [facility] Comment on above: Performed By: #### C CONNER, CMP #### [facility] ([id number]) [address], [address] [place] [address] ALP [Catalytic activity/Vol] 126 U/L Normal 39-130 [facility] Comment on above: Performed By: #### C BC, CMP #### [facility] ([id number]) [address], [address] [place] [address] ALT [Catalytic activity/Vol] 22 U/L Normal 0-40 [facility] Comment on above: Performed By: #### C CONNER, CMP #### [facility] ([id number]) [address] [place] [address] Anion gap [Moles/Vol] 6 mmol/L Normal 5-15 [facility] Comment on above: Performed By: #### C CONNER, CMP #### [facility] ([id number]) [address], [address] [place] [address] AST [Catalytic activity/Vol] 15 U/L Normal 0-41 [facility] Comment on above: Performed By: #### C CONNER, CMP #### [facility] ([id number]) [address], [address] [place] [address] Bilirubin [Mass/Vol] 0.6 mg/dL Normal 0.3-1.2 [facility] Comment on above: Performed By: #### C CONNER, CMP #### [facility] ([id number]) [address] [place] [address] Calcium [Mass/Vol] 9.5 mg/dL Normal 8.5-10.5 [facility] Comment on above: Performed By: #### C CONNER, CMP #### [facility] ([id number]) [address] [address] [place] [address] Chloride [Moles/Vol] 105 mmol/L Normal 98-109 [facility] Comment on above: Performed By: #### C CONNER, CMP #### [facility] ([id number]) [address] [facility] [address] [place] [address] CO2 [Moles/Vol] 30 mmol/L Normal 22-32 [facility] Comment on above: Performed By: #### C CONNER, CMP #### [facility] ([id number]) [address] [address] [place] [address] Creatinine [Mass/Vol] 1.11 mg/dL Normal 0.60-1.30 [facility] Comment on above: Result Comment: METH OD TRACEABLE TO IDMS STANDARD Performed By: #### C CONNER, CMP #### [facility] ([id number]) [address] [address] [place] [address] GFR/1.73 sq M.predicted among non-blacks MDRD (S/P/Bld) [Vol rate/Area] 76 mL/min/{1.73_m2} Normal >59 [facility] Comment on above: Result Comment: Reported eGFR is based on the CKD-EPI 2020 equation that does not use a race coefficient. Performed By: #### C CONNER, CMP #### [facility] ([id number]) [address] [address] [place] [address] Glucose [Mass/Vol] 86 mg/dL Normal 65-99 [facility] Comment on above: Performed By: #### C CONNER, CMP #### [facility] ([id number]) [address] [address] [place] [address] Potassium [Moles/Vol] 4.1 mmol/L Normal 3.5-5.0 [facility] Comment on above: Performed By: #### C CONNER, CMP #### [facility] ([id number]) [address] [address] [place] [address] Protein [Mass/Vol] 7.3 g/dL Normal 6.0-8.0 [facility] Comment on above: Performed By: #### C BC, CMP #### [facility] ([id number]) [address] [place] [address] Sodium [Moles/Vol] 141 mmol/L Normal 134-146 [facility] Comment on above: Performed By: #### C BC, CMP #### [facility] ([id number]) [address] [place] [address] Urea nitrogen [Mass/Vol] 20 mg/dL Normal 5-23 [facility] Comment on above: Performed By: #### C BC, CMP #### [facility] ([id number]) [address] [place] [address] CT PELVIS W IV CONTRASTon CT PELVIS [...] low as reasonably achievable. FINDINGS: Within the gyrsn-hp-mdjs the visualized portion of the large and [...] ATOUS DISEASE. ADDITIONALLY THERE IS REPORT BY DRAINAGE DESIGN COORDINATOR OF HISTORY OF FARM ACCIDENT SUCH RECOMMEND [...] to further evaluate. ELECTRONICALLY SIGNED BY: Arjun Miller, Normal Not Available PSA, FREE AND TOTAL RATIOon 07-24-2022 % Free PSA 14.5 % Normal [facility] Comment on above: Result Comment: The table [...] men. Performed By: #### P SAFREE #### [facility] [address] [place] [address] Dr. Venus Guy Prostate specific Ag [Mass/Vol] 6.0 ng/mL Critically high 0.0-4.0 [facility] Comment on above: Result Comment: Angeline MELTON methodology. . According to the [place] [employer], Serum PSA should decrease and [...] disease. Performed By: #### P SAFREE #### [facility] [address] [place] [address] Dr. Venus Guy PSA, Free 0.87 ng/mL Normal N/A [facility] Comment on above: Result Comment: Angeline haro ECLIA methodology. Performed By: #### P SAFREE #### [facility] [address] [place] [address] Dr. Venus Guy GLYCOHEMOGLOBIN A1Con 2022 ADA RECOMMENDATION SEE BELOW Normal [facility] Comment on above: Result Comment: ADA RECOMMENDED LIMIT 4.0 - 6.0 ADA THERAPEUTIC TARGET < 7.0 ACTION SUGGESTED > 7.0 Performed By: #### A 1C #### [facility] [address] [place] [address] Dr. Venus Guy Glucose [Mass/Vol] 94 mg/dL Normal [facility] Comment on above: Performed By: #### A 1C #### [facility] [address] [place] [address] Dr. Venus Guy HbA1c (Bld) [Mass fraction] 4.9 % Normal 4.5-6.2 [facility] Comment on above: Performed By: #### A 1C #### [facility] [address] [place] [address] Dr. Venus Guy PROF CHEM 8 (BAS METB)on Anion gap [Moles/Vol] 10.0 mmol/L Normal [facility] Comment on above: Performed By: #### U MARTÍN, BMP #### [facility] [address] [place] [address] Dr. Venus Guy Calcium [Mass/Vol] 9.0 mg/dL Normal 8.5-10.1 [facility] Comment on above: Performed By: #### U MARTÍN, BMP #### [facility] [address] [place] [address] [address] Venus Guy Chloride [Moles/Vol] 105 mmol/L Normal 98-107 [facility] Comment on above: Performed By: #### U MARTÍN, BMP #### [facility] [address] [address] [address] Venus Guy CO2 [Moles/Vol] 29.8 mmol/L Normal 21.0-32.0 [facility] Comment on above: Performed By: #### U MARTÍN, BMP #### [facility] [address] [place] [address] Dr. Venus Guy Creatinine [Mass/Vol] 1.15 mg/dL Normal 0.70-1.30 [facility] Comment on above: Performed By: #### U MARTÍN, BMP #### [facility] [address] [address] [address] Venus Guy EGFR-AF THAI >60 Normal >=60 [facility] Comment on above: Performed By: #### U MARTÍN, BMP #### [facility] [address] [place] [address] Dr. Venus Guy EGFR-NON AF THAI >60 Normal >=60 [facility] Comment on above: Performed By: #### U MARTÍN, BMP #### [facility] [address] [address] [address] Venus Guy Glucose [Mass/Vol] 119 mg/dL Critically high 74-[address] [facility] Comment on above: Performed By: #### U MARTÍN, BMP #### [facility] [address] [address] [address] Venus Guy Potassium [Moles/Vol] 4.8 mmol/L Normal 3.5-5.1 [facility] Comment on above: Performed By: #### U MARTÍN, BMP #### [facility] [address] [address] [address] Venus Guy Sodium [Moles/Vol] 140 mmol/L Normal 136-145 [facility] Comment on above: Performed By: #### U MARTÍN, BMP #### [facility] [address] [address] [address] Venus Guy Urea nitrogen [Mass/Vol] 11.0 mg/dL Normal 7.0-18.0 [facility] Comment on above: Performed By: #### U MARTÍN, BMP #### [facility] [address] [address] [address] Venus Guy Urea nitrogen/Creatinine [Mass ratio] 9.6 mg/mg Normal [facility] Comment on above: Performed By: #### U MARTÍN, BMP #### [facility] [address] [address] [address] Venus Guy URIC ACID SERUMon 07-16-2022 Urate [Mass/Vol] 6.3 mg/dL Normal 3.5-7.2 [facility] Comment on above: Performed By: #### U MARTÍN, BMP #### [facility] [address] [place] [address] Dr. Venus Guy COMPREHENSIVE METABOLIC PANE [facility] 04-28-2021 Albumin [Mass/Vol] 4.1 g/dL Normal 3.6-5.1 [facility] Comment on above: Performed By: #### 7 600, 12255 #### [facility] [place] [address] Hardwood Floor Finisher: German Rivera MD Albumin/Globulin [Mass ratio] 1.6 {ratio} Normal 1.0-2.5 [facility] Comment on above: Performed By: #### 7 600, 60252 #### [facility] [address] Finisher: German Rivera MD ALP [Catalytic activity/Vol] 120 U/L Normal 35-144 [facility] Comment on above: Performed By: #### 7 600, 53005 #### [facility] [address] Finisher: German Rivera MD ALT [Catalytic activity/Vol] 24 U/L Normal 9-46 [facility] Comment on above: Performed By: #### 7 600, 70659 #### [facility] of [place] [address] [employer] Floor Finisher: German Rivera MD AST [Catalytic activity/Vol] 15 U/L Normal 10-35 [facility] Comment on above: Performed By: #### 7 600, 63629 #### [facility] of [place] [address] [employer] Finisher: German Rivera MD Bilirubin [Mass/Vol] 0.5 mg/dL Normal 0.2-1.2 [facility] Comment on above: Performed By: #### 7 600, 28128 #### [facility] of [place] [address] [employer] Floor Finisher: German Rivera MD BUN/CREATININE RATIO NOT APPLICABLE Normal 6-22 [facility] Comment on above: Performed By: #### 7 600, 11582 #### [facility] of [place] [address] [employer] Floor Finisher: German Rivera MD Calcium [Mass/Vol] 9.0 mg/dL Normal 8.6-10.3 [facility] Comment on above: Performed By: #### 7 600, 90154 #### [facility] of [place] [address] [employer] Floor Finisher: German Rivera MD Chloride [Moles/Vol] 104 mmol/L Normal 98-110 [facility] Comment on above: Performed By: #### 7 600, 85568 #### [facility] of [place] [address] [employer] Floor Finisher: German Rivera MD CO2 [Moles/Vol] 30 mmol/L Normal 20-32 [facility] Comment on above: Performed By: #### 7 600, 04945 #### [facility] of [place] [address] [employer] Floor Finisher: German Rivera MD Creatinine [Mass/Vol] 1.11 mg/dL Normal 0.70-1.[address] [facility] Comment on above: Result Comment: For patients >49 years of age, the reference limit for Creatinine is approximately 13% higher for people identified as -Egyptian. Performed By: #### 7 600, 89680 #### [facility] [address], [address] [place] [address] Hardwood Floor Finisher: German Rivera MD eGFR NON-AFR. THAI 73 mL/min/1.73m2 Normal > OR = 60 [facility] Comment on above: Performed By: #### 7 600, 01309 #### [facility] of [address], [address] [place] [address] Hardwood Floor Finisher: German Rivera MD GFR/1.73 sq M.predicted among blacks MDRD (S/P/Bld) [Vol rate/Area] 85 mL/min/{1.73_m2} Normal > OR = 60 [facility] Comment on above: Performed By: #### 7 600, 38506 #### [facility] of [address], [address] [place] [address] Hardwood Floor Finisher: German Rivera MD Globulin (S) [Mass/Vol] 2.6 g/dL Normal 1.9-3.7 [facility] Comment on above: Performed By: #### 7 600, 42410 #### [facility] [place] [address] Hardwood Floor Finisher: German Rivera MD Glucose [Mass/Vol] 95 mg/dL Normal 65-139 [facility] Comment on above: Result Comment: Non-fasting reference interval Performed By: #### 7 600, 54523 #### [facility] of [address], [address] [place] [address] Hardwood Floor Finisher: German Rivera MD Potassium [Moles/Vol] 4.4 mmol/L Normal 3.5-5.[address] [facility] Comment on above: Performed By: #### 7 600, 03123 #### [facility] [address], [address] [place] [address] Hardwood Floor Finisher: German Rivera MD Protein [Mass/Vol] 6.7 g/dL Normal 6.1-8.1 [facility] Comment on above: Performed By: #### 7 600, 34605 #### [facility] [place] [address] Hardwood Floor Finisher: German Rivera MD Sodium [Moles/Vol] 140 mmol/L Normal 135-146 [facility] Comment on above: Performed By: #### 7 600, 03761 #### [facility] of [address], [address] [place] [address] Hardwood Floor Finisher: German Rivera MD Urea nitrogen [Mass/Vol] 17 mg/dL Normal 7-25 [facility] Comment on above: Performed By: #### 7 600, 36227 #### [facility] [place] [address] Hardwood Floor Finisher: German Rivera MD LIPID PANEL, [place] [address] Cholesterol [Mass/Vol] 167 mg/dL Normal <200 [facility] Comment on above: Order Comment: FASTI NG:NO FASTING: NO Performed By: #### 7 600, 96470 #### [facility] [place] [address] Hardwood Floor Finisher: German Rivera MD Cholesterol in HDL [Mass/Vol] 35 mg/dL Low > OR = 40 [facility] Comment on above: Order Comment: FASTI NG:NO FASTING: NO Performed By: #### 7 600, 67475 #### [facility] of [place] [address] Hardwood Floor Finisher: German Rivera MD Cholesterol.total/Chol esterol in HDL [Mass ratio] 4.8 {ratio} Normal <5.0 [facility] Comment on above: Order Comment: FASTI NG:NO FASTING: NO Performed By: #### 7 600, 15486 #### [facility] of [place] [address] Hardwood Floor Finisher: German Rivera MD LDL-CHOLESTEROL Normal [facility] [...] factors. LDL-C is now calculated using the Abhijeet-Aguirre calculation, which is a validated novel method providing better accuracy than the Friedewald equation in the estimation of LDL-C. Abhijeet SS et al. JOSH. 2013;310(19): 6570-1599 (http://education.OneShift/faq/PRF529) Performed By: #### 7 600, 48120 #### [facility] [address], [address] [place] [address] Hardwood Floor Finisher: German Rivera MD NON HDL CHOLESTEROL 132 mg/dL (calc) High <130 [facility] Comment on above: Order Comment: FASTI NG:NO FASTING: NO Result Comment: For patients with diabetes plus 1 major ASCVD risk factor, treating to a non-HDL-C goal of <100 mg/dL (LDL-C of <70 mg/dL) is considered a therapeutic option. Performed By: #### 7 600, 80772 #### [facility] [place] [address] Hardwood Floor Finisher: German Rivera MD Triglyceride [Mass/Vol] 453 mg/dL High <150 [facility] Comment on above: Order Comment: FASTI NG:NO FASTING: NO Result Comment: If a non-fasting specimen was collected, consider repeat triglyceride testing on a fasting specimen if clinically indicated. Yaneli et al. J. of Clin. Lipidol. 2015;9:129-169. Performed By: #### 7 600, 85454 #### [facility] [address], [address] [place] [address] Hardwood Floor Finisher: German Rivera MD Vital Signs Date Time Vital Sign Value Performing Clinician Facility 03-08-2024 09:[id number] Body height 188 cm Shazia Barrientos NP Work Phone: [facility] 03-08-2024 09:23-0400 Body mass index (BMI) [Ratio] 39.67 kg/m2 Shazia Bautistapreethiz [employer] Work Phone: [facility] 03-08-2024 09:23-0400 Body temperature 98.8 [degF] Shazia Bautistadishaholz [employer] Work Phone: [facility] 03-08-2024 09:23-0400 Body weight 140.16 kg Shaziasunny Schaefferholz [employer] Work Phone: [facility] 03-08-2024 09:23-0400 Diastolic blood pressure 90 mm[Hg] Shazia Lilyhholz [employer] Work Phone: [facility] 03-08-2024 09:23-0400 Heart rate 70 /min Shazia Lilypreethiz [employer] Work Phone: [facility] 03-08-2024 09:23-0400 Respiratory rate 18 /min Shazia Lauryholz [employer] Work Phone: [facility] 03-08-2024 09:23-0400 SaO2% (BldA) [Mass fraction] 100 % Shazia Lilyhholz [employer] Work Phone: [facility] 03-08-2024 09:23-0400 Systolic blood pressure 128 mm[Hg] Shazia Laurysherlynz [employer] Work Phone: [facility] 11-05-2023 13:01-0400 Diastolic blood pressure 90 mm[Hg] JOJO ANDERSONRY [facility] 11-05-2023 13:01-0400 Heart rate 77 /min JOJO SHAREE [facility] 11-05-2023 13:01-0400 Mean blood pressure 109 mm[Hg] JOJO SHAREE [facility] 11-05-2023 13:01-0400 Systolic blood pressure 148 mm[Hg] JOJO SHAREE [facility] 11-05-2023 13:00-0400 Body temperature 98.6 [degF] JOJO SHAREE [facility] 11-05-2023 13:00-0400 Diastolic blood pressure 88 mm[Hg] JOJO SHAREE [facility] 11-05-2023 13:00-0400 Heart rate 72 /min JOJO SHAREE [facility] 11-05-2023 13:00-0400 Respiratory rate 16 /min JOJO SHAREE [facility] 11-05-2023 13:00-0400 Systolic blood pressure 165 mm[Hg] JOJO SHAREE [facility] 07-07-2023 10:59-0500 Body height 188 cm Roddy HELLER Work Phone: [facility] 07-07-2023 10:59-0500 Body mass index (BMI) [Ratio] 32.1 kg/m2 Roddy HELLER Work Phone: [facility] 07-07-2023 10:59-0500 Body weight 113.4 kg Roddy HELLER Work Phone: [facility] Healthcare Encounters Encounter Date Encounter Type Care Provider Facility Start: 03-29-2024 ambulatory DEVIN TOLLIVER Facility:[facility] Start: 03-08-2024 End: 03-08-2024 Bamboo flowsheet Shazia Barrientos [employer] Work Phone: [facility] Start: 03-08-2024 End: 03-08-2024 Bamboo flowsheet Shazia Barrientos NP Work Phone: [facility] Start: 03-08-2024 End: 03-08-2024 Office outpatient visit 25 minutes Shazia Iliana [employer] Work Phone: [facility] Comment on above: Anxiety (Primary Dx) ; Morbid (severe) obesity due to excess calories (CMS/HCC); Hyperlipidemia, unspecified (CMS/HCC); Body mass index (BMI) 39.0-39.9, adult; Hyperlipidemia, unspecified hyperlipidemia type (CMS/HCC); Other insomnia; Restless legs; Hypothyroidism, unspecified type (CMS/HCC); Environmental and seasonal allergies; Needs flu shot Start: 03-08-2024 End: 03-08-2024 ambulatory SHAZIA ILIANA Not Available Start: 03-04-2024 End: 03-04-2024 Clinisync Result Encounter Shazia Schaeffermaicol [employer] Work Phone: [facility] Unsolic[facility] Start: 03-04-2024 End: 03-04-2024 Clinisync Result Encounter Shazia Schaeffermaicol [employer] Work Phone: [facility] Unsolic[facility] Start: 02-04-2024 End: 02-04-2024 ambulatory JULIO CESAR COBB Not Available Start: 01-27-2024 End: 01-27-2024 ambulatory Camilo Luque Facility:[facility] Start: 01-27-2024 End: 01-27-2024 Discharged Recurring DO Camilo Luque Work Phone: [facility] [place] Work Phone: Start: 12-29-2023 End: 12-29-2023 Patient encounter procedure DO Camilo Luque Work Phone: [facility] [place] Work Phone: Start: 12-29-2023 End: 12-29-2023 ambulatory DO Camilo Luque Work Phone: [facility] Work Phone: Start: 12-24-2023 End: 12-24-2023 ambulatory JULIO CESAR COBB Not Available Start: 12-08-2023 End: 12-08-2023 ambulatory RODDY JACINTO Not Available Start: 11-17-2023 End: 11-17-2023 ambulatory RODDY JACINTO Not Available Start: 11-13-2023 Patient encounter procedure Shazia Barrientos [employer] Work Phone: [facility] Start: 11-13-2023 End: 11-13-2023 ambulatory SHAZIA SCHAEFFERMAICOL Not Available Start: 11-07-2023 ambulatory PA-C JOJO TOLLIVER Fac ility: [facility] Start: 11-05-2023 End: 11-05-2023 ambulatory PA-C JOJO TOLLIVER Facility:[facility] Start: 11-05-2023 End: 11-05-2023 Patient encounter procedure JOJO TOLLIVER [facility] Start: 10-24-2023 End: 10-24-2023 ambulatory [facility] Start: 10-16-2023 End: 10-16-2023 ambulatory [facility] Start: 10-13-2023 End: 10-13-2023 ambulatory SHAZIA SCHAEFFERSHERLYNBeka Not Available Start: 10-10-2023 End: 10-10-2023 ambulatory [facility] Start: 09-30-2023 End: 09-30-2023 ambulatory DANI SEGAL [facility] Start: 09-16-2023 End: 09-16-2023 Evaluation and management of inpatient CAMILO CHAVIRA [facility] Start: 09-16-2023 End: 09-16-2023 Evaluation and management of inpatient MIGUELANGEL RIVERO [facility] Start: 09-10-2023 Encounter for other preprocedural examination SHAZIASunny BARRIENTOS [facility] Start: 09-10-2023 End: 09-10-2023 ambulatory MIGUELANGEL Haro EV [facility] Start: 09-03-2023 End: 09-03-2023 ambulatory [facility] Start: 07-28-2023 End: 07-28-2023 ambulatory RODDY JACINTO Not Available Start: 07-21-2023 End: 07-21-2023 ambulatory JR. JULIO CESAR [employer] NAIDU Not Available Start: 07-17-2023 End: 07-17-2023 ambulatory RODDY JACINTO Not Available Start: 07-09-2023 End: 07-09-2023 ambulatory RODDY JACINTO Not Available Start: 07-07-2023 End: 07-07-2023 Office outpatient visit 15 minutes Roddy Jacinto PA Work Phone: [facility] Comment on above: History of total rig ht hip replacement (Primary Dx); Right hip pain; Mass of soft tissue of right upper extremity Start: 07-07-2023 End: 07-07-2023 Telemedicine consultation with patient Roddy Jacinto PA Work Phone: [facility] Comment on above: Canceled (Other: Err or) Start: 07-07-2023 End: 07-07-2023 ambulatory RODDY JACINTO Not Available Start: 07-22-2022 End: 07-23-2022 ambulatory [employer] SHAZIA ILIANA Facility:[facility] Start: 07-16-2022 End: 07-17-2022 ambulatory DINORAH PUENTES ILIANA Facility:[facility] Procedures Date Procedure Procedure Detail Performing Clinician Start: 03-04-2024 ALL THYROID STIM HORMONE Shazia Barrientos [employer] Work Phone: Start: 12-29-2023 MR prostate wo/w con DO Camilo Luque Work Phone: Start: 07-22-2022 PSA screening DINORAH CERRATOA [facility] Comment on above: Performed By: #### [facility] #### [facility] [address] [place] [address] Dr. Venus TOLLIVER History of right hip replacement JOJO TOLLIVER Plan of Treatment Date Care Activity Detail Author Start: 11-12-2024 Medicare Annual Well ness (AWV) Medicare Annual Wellness (AWV) [facility] Start: 10-12-2024 Screening for malign ant neoplasm of colon Colorectal Cancer Screening [facility] Comment on above: Postponed from 12/08 (Patient Refused) Start: 09-07-2024 End: 09-07-2024 Patient encounter procedure 09/07/2024 9:00 AM EDT Office Visit [facility] [address] [place] [address] Shazia Barrientos, MAHESH [address] [place] [address] [facility] Start: 07-19-2024 End: 07-19-2024 Patient encounter procedure 07/19/2024 8:00 AM EST Office Visit [facility] [address] [place] [id number] Jr. Julio Cesar Naidu DO [address] [facility] [address] [place] [address] [facility] Start: 03-08-2024 End: 03-08-2024 Patient encounter procedure [facility] Comment on above: Morbid (severe) obes ity due to excess calories (CMS/HCC); Hyperlipidemia, unspecified (CMS/HCC); Body mass index (BMI) 39.0-39.9, adult; Hyperlipidemia, unspecified hyperlipidemia type (CMS/HCC); Other insomnia; Restless legs; Hypothyroidism, unspecified type (CMS/HCC); Environmental and seasonal allergies; Anxiety Start: 12-29-2023 MR Prostate WO and W contrast IV [facility] Start: 12-29-2023 MR prostate wo/w con MR prostate wo/ w con [facility] Start: 07-28-2023 End: 07-28-2023 Patient encounter procedure 07/28/2023 9:45 AM EST Office Visit [facility] [address] [place] [address] Roddy Jacinto PA [address] [place] [address] [facility] Start: 07-07-2023 End: 07-07-2024 US LOWER EXTREMITY NON-VASC RIGHT US LOWER EXTREMITY NON-VASC RIGHT Imaging Routine Mass of soft tissue of right upper extremity Expected: 07/07/2023 (Approximate), Expires: 07/07/2024 [facility] Work Phone: Comment on above: Expected: 07/07/2023 (Approximate), Expires: 07/07/2024 Start: 01-24-2023 Influenza vaccination Influenza Vacc ine (#1) [facility] Start: 1965 Medicare Annual Well ness (AWV) Medicare Annual Wellness (AWV) [facility] Start: 1965 Screening for malign ant neoplasm of colon [facility] XR Hip - right 3 Views XR hip ri ght 2 or 3 views Imaging Routine Right hip pain 07/07/2023 10:42 AM EST [facility] Immunizations Immunization Date Immunization Notes Care Provider Fa [facility] 03-08-2024 Influenza, injectabl e, Madin Delilah Canine Kidney, preservative free, quadrivalent Shazia Iliana [employer] Work Phone: [facility] 05-29-2022 influenza, injectabl e, quadrivalent, preservative free Roddy HELLER Work Phone: [facility] 05-29-2022 pneumococcal conjuga te vaccine, 13 valent Roddy HELLER Work Phone: [facility] 05-29-2022 influenza virus vaccine, unspecified formulation Roddy HELLER Work Phone: [facility] 03-11-2021 influenza virus vaccine, unspecified formulation JOJO TOLLIVER [facility] 03-11-2021 influenza, injectabl e, quadrivalent, preservative free Roddy HELLER Work Phone: [facility] 03-11-2021 influenza, seasonal, injectable DO Camilo Luque Work Phone: [facility] 02-01-2021 SARS-CoV-2 (COVID-19 ) mRNA BNT-162b2 vax JOJO TOLLIVER [facility] 01-05-2021 SARS-CoV-2 (COVID-19 ) mRNA BNT-162b2 vax JOJO TOLLIVER [facility] 02-18-2017 influenza virus vaccine, unspecified formulation OJJO TOLLIVER [facility] 02-18-2017 influenza, injectabl e, quadrivalent, contains preservative Roddy HELLER Work Phone: [facility] 02-18-2017 influenza, injectabl e, quadrivalent, preservative free DO Camilo Luque Work Phone: [facility] 05-23-2015 influenza virus vaccine, unspecified formulation JOJO TOLLIVER [facility] 05-23-2015 influenza, injectabl e, quadrivalent, preservative free Roddy HELLER Work Phone: [facility] 06-24-2014 zoster vaccine, live Roddy HELLER Work Phone: [facility] 04-06-2014 influenza, injectabl e, quadrivalent, contains preservative DO Camilo Luque Work Phone: [facility] 04-14-2013 influenza, injectabl e, quadrivalent, contains preservative DO Camilo Luque Work Phone: [facility] Payers Date Payer Category Payer Self-pay [id number] 2022 Medicare HU[employer]NA MEDICARE ADVANTAGE HU[employer]NA MEDICARE [id number] 2022-Present [address] [address] [place] [address] [id number] 2022 Medicare (Managed Care) HUMANA M EDICARE ADVANTAGE Member Subscriber Plan / Payer (Effective 2022-Present) Name: Mykel Razo Relation to Subscriber: Self Name: Mykel Razo Payer ID: [id number] (NAIC) Type: Not on file Address: [address] [id number] 2017 Medicaid [id number]. [id number] 1963 Unknown [id number] 2.16.840.1.410397.3.579.2. 593 1963 Unknown [id number] 2.16.840.1.018274.3.579.2. 593 1963 Unknown [id number] 2.16.840.1.753680.3.579.2. 1285 1963 Unknown [id number] 2.16.840.1.744727.3.579.2. 1285 1963 Unknown [id number] 2.16.840.1.035359.3.579.2. 1285 1963 Unknown [id number] 2.16.840.1.308959.3.579.2. 1285 1963 Unknown [id number] 2.16.840.1.124836.3.579.2. 128 1963 Unknown [id number] 2.16.840.1.773237.3.579.2. 128 1963 Unknown [id number] 2.16.840.1.904235.3.579.2. 128 1963 Unknown [id number] 2.16.840.1.512414.3.579.2. 128 1963 Unknown [id number] 2.16840.1.799460.3.579.2. 1285 1963 Unknown [id number] 2.16840.1.981152.3.579.2. 1285 1963 Unknown [id number] 2.16840.1.615717.3.579.2. 1285 1963 Unknown [id number] 2.840.1.369888.3.579.2. 1963 Unknown [id number] 2.840.1.852751.3.579.2. 1963 Unknown [id number] 2.840.1.710417.3.579.2. 1258 1963 Unknown [id number] 2.840.1.061959.3.579.2. 1258 1963 Unknown [id number] 2.840.1.769785.3.579.2. 1258 1963 Unknown [id number] 2.840.1.069811.3.579.2. 1258 1963 Unknown [id number] 2.840.1.351365.3.579.2. 1258 1963 Unknown [id number] 2.840.1.343155.3.579.2. 1258 1963 Unknown [id number] 2.840.1.002544.3.579.2. 1258 1963 Unknown [id number] 2.840.1.831080.3.579.2. 1258 1963 Unknown [id number] .840.1.207855.3.579.2. 1258 1963 Unknown [id number] 2.16840.1.097136.3.579.2. 1258 1963 Unknown [id number] 2.840.1.215195.3.579.2. 1259 1963 Unknown [id number] 2.16.840.1.252675.3.579.2. 1259 1963 Unknown [id number] 2.16.840.1.844842.3.579.2. 1259 1963 Unknown [id number] 2.16.840.1.923649.3.579.2. 1259 1959 Medicaid [id number] 1961 Medicare [id number] Medicare Medicare [id number] Unknown [id number] 2.16.840.1.792038.3.579.2. 531 Social History Date Type Detail Facility Start: 05-26-2023 Tobacco smoking status OKIS Tobacco smoking consumption unknown [facility] Start: 05-26-2023 Tobacco use and exposure User of smokeless tobacco [facility] History of tobacco use Chews Tobacco [facility] Start: 07-07-2023 End: 03-08-2024 Alcohol intake Ex-drinker (finding) [facility] Start: 07-07-2023 End: 11-13-2023 History of Social function [facility] Start: 07-07-2023 End: 11-13-2023 Tobacco use panel [facility] Start: 1965 Sex Assigned At Not on file [facility] Start: 11-05-2023 Tobacco smoking status Never smoked tobacco (finding) [facility] Tobacco smoking status Smokeless tobacco user within last 30 days [facility] Start: 12-17-2017 Tobacco smoking status NHIS Ex-smoker (finding) [facility] Start: 1965 Sex Assigned At Male F [facility] Functional Status Date Assessment Result Facility 11-05-2023 Functional Status N/A [facility] History of Present illness Narrative 03-08-2024 Shazia Barrientos NP - 03/08/2024 9:36 AM Yesica Barrientos NP - 03/08/2024 9:36 AM EDAMAURY POWERS - 03/08/2024 9:20 AM EDGay Barrientos NP - 03/08/2024 9:20 AM EDT Note Date & Type Note Facility 03-08-2024 History of Presen t illness Narrative Associated Problem(s): Insomnia Continue trazodone No dose changes needed Associated Problem(s): Hypothyroid (CMS/HCC) Reviewed labs, no dose changes Refill meds Hips and knee pain-weather related Pt needs a refill on his trazdone, and possibly all of his meds Images from the original note were not included. Mykel Razo is a 58 y.o. male presents with chief complaint of No chief complaint on file. HPI: Anxiety Presents for follow-up visit. Symptoms include insomnia. Patient reports no chest pain, decreased concentration, depressed mood, dizziness, excessive worry, irritability, muscle tension, nausea, nervous/anxious behavior, palpitations, restlessness or suicidal ideas. Symptoms occur occasionally. The severity of symptoms is mild. The quality of sleep is good. Compliance with medications is 76-100%. Insomnia This is a chronic problem. The current episode started more than 1 year ago. The problem occurs intermittently. The problem has been unchanged. Pertinent negatives include no chest pain or nausea. Nothing aggravates the symptoms. Treatments tried: trazodone. The treatment provided significant relief. SUBJECTIVE: MEDICATIONS: Current Outpatient Medications Medication Instructions atorvastatin (LIPITOR) 20 mg, Oral, Nightly celecoxib (CELEBREX) 200 mg, Daily escitalopram (LEXAPRO) 20 mg, Oral, Daily fexofenadine (LAKEISHA) 180 mg, Oral, Daily fluticasone (Flonase) 50 MCG/ACT nasal spray 2 sprays, Each Nostril, Daily, Shake gently. Before first use, prime pump. After use, clean tip and replace cap. levothyroxine (SYNTHROID, LEVOXYL) 112 mcg, Oral, Daily omeprazole (PRILOSEC) 20 mg, Daily RT rOPINIRole (REQUIP) 0.25 mg, Oral, Nightly tiZANidine (Zanaflex) 4 MG tablet 4mg at bedtime prn muscle spasms/tighntess traZODone (DESYREL) 100 mg, Oral, Nightly ALLERGIES: Allergies Allergen Reactions Celebrex [Celecoxib] Octacosanol Itching REVIEW OF SYMPTOMS: Review of Systems Constitutional: Negative for activity change, appetite change, irritability and unexpected weight change. HENT: Negative for ear pain, nosebleeds, sneezing, trouble swallowing and voice change. Eyes: Negative for pain, discharge and visual disturbance. Respiratory: Negative for apnea, chest tightness and wheezing. Cardiovascular: Negative for chest pain, palpitations and leg swelling. Gastrointestinal: Negative for abdominal distention, blood in stool, constipation, diarrhea and nausea. Genitourinary: Negative for decreased urine volume, difficulty urinating, dysuria and hematuria. Skin: Negative for color change. Neurological: Negative for dizziness, tremors and seizures. Psychiatric/Behavioral: Negative for agitation, decreased concentration, hallucinations, self-injury and suicidal ideas. The patient has insomnia. The patient is not nervous/anxious. Hematological: Negative for adenopathy. Does not bruise/bleed easily. Endocrine: Negative for cold intolerance, heat intolerance, polydipsia and polyuria. Allergic/Immunologic: Negative for environmental allergies and food allergies. 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) GROIN Gallbladder polyp Gout Hyperlipidemia (CMS/HCC) Hypothyroid (CMS/HCC) Insomnia Osteoarthritis Restless legs Thyroid disease (CMS/HCC) Tobacco user Past Surgical History: Procedure Laterality Date EYE SURGERY Right KNEE SURGERY 2006 KNEE SURGERY Left scope, [facility] KNEE SURGERY Right MASS EXCISION Right 10/24/2023 (R) GROIN FOLLICULAR LYMPHOMA ; DR HANKINS MASS EXCISION Right 09/16/2023 (R) GROIN ; DR RIVERO TONSILLECTOMY TOTAL HIP ARTHROPLASTY Right 05/28/2022 STEPANIC family history includes Heart attack in his father; Heart disease in his father; Hypertension in his father and mother; Osteoarthritis in his father; valve replacement in his father. OBJECTIVE: Visit Vitals BP 128/90 (BP Location: Left arm, Patient Position: Sitting, BP Cuff Size: Large adult long) Pulse 70 Temp 98.8 F (Temporal) Resp 18 Ht 6' 2 Wt 309 lb SpO2 100% BMI 39.67 kg/m Smoking Status Unknown BSA 2.7 m Physical Exam Vitals and nursing note reviewed. Constitutional: Appearance: Normal appearance. HENT: Head: Normocephalic. Right Ear: External ear normal. Left Ear: External ear normal. Nose: Nose normal. Mouth/Throat: Mouth: Mucous membranes are moist. Pharynx: Oropharynx is clear. Eyes: Extraocular Movements: Extraocular movements intact. Conjunctiva/sclera: Conjunctivae normal. Cardiovascular: Rate and Rhythm: Normal rate and regular rhythm. Pulses: Normal pulses. Heart sounds: Normal heart sounds. Pulmonary: Effort: Pulmonary effort is normal. Breath sounds: Normal breath sounds. Abdominal: General: Bowel sounds are normal. Palpations: Abdomen is soft. Musculoskeletal: Cervical back: Neck supple. Lymphadenopathy: Cervical: No cervical adenopathy. Skin: General: Skin is warm and dry. Capillary Refill: Capillary refill takes 2 to 3 seconds. Neurological: General: No focal deficit present. Mental Status: He is alert. Psychiatric: Mood and Affect: Mood normal. Behavior: Behavior normal. Thought Content: Thought content normal. Judgment: Judgment normal. ASSESSMENT AND PLAN: No follow-ups on file. Problem List Items Addressed This Visit Anxiety Relevant Medications escitalopram (Lexapro) 20 MG tablet Hypothyroid (CMS/HCC) Reviewed labs, no dose changes Refill meds Relevant Medications levothyroxine (Synthroid, Levoxyl) 112 MCG tablet Hyperlipidemia, unspecified (CMS/HCC) Continue statin Relevant Medications atorvastatin (Lipitor) 20 MG tablet Restless legs Relevant Medications rOPINIRole (Requip) 0.25 MG tablet Environmental and seasonal allergies Relevant Medications fluticasone (Flonase) 50 MCG/ACT nasal spray fexofenadine (Lakeisha) 180 MG tablet Insomnia Continue trazodone No dose changes needed Relevant Medications traZODone (Desyrel) 50 MG tablet Body mass index (BMI) 39.0-39.9, adult Morbid (severe) obesity due to excess calories (CMS/HCC) Needs flu shot - Primary Relevant Orders Flu vaccine, MDCK, quadrivalent, PF (IXE267) (Flucelvax single dose syringe) Associated Problem(s): Hyperlipidemia, unspecified (CMS/HCC) Continue statin documented in this encounter [facility] Discharge instructions 11-05-2023 Note Date & [...] Follow these instructions at home: Medicines Take [id number] and prescription medicines only as told by [...] provider. Document Revised: 08/08/2021 Document Reviewed: 08/08/2021 [employer] Patient Education 2022 [employer]. Follow Up Care 10/27/2023 15:01:43 With:SHAREE BELTRAN, JOJO Haro, URL Address: [address] [place] [address] Business (1) When: Unknown Comments:pending results of imaging/testing, will call with next steps [facility] History of Present illness Narrative 07-07-2023 ARRON [...] evaluation. ARRON Hughes documented in this encounter [facility] History of Present illness Narrative 07-07-2023 ARRON Hughes - 07/07/2023 10:45 AM EST Note Date & Type Note Facility 07-07-2023 History of Presen t illness Narrative Telemed ( error) in office appt documented in this encounter [facility] Evaluation + Plan note Note Date & Type Note Facility Evaluation + Plan note No data available for this section [facility] Evaluation note Note Date & Type Note Facility Evaluation note Diagnosis History of total right hip replacement- Primary Right hip pain Pain in joint, pelvic region and thigh Mass of soft tissue of right upper extremity documented in this encounter [facility] Evaluation note Note Date & Type Note Facility Evaluation note [facility]: Evaluation note Note Date & Type Note Facility Evaluation note Diagnosis Trapezius strain, left, initial encounter- Primary Chronic gout without tophus, unspecified cause, unspecified site Tobacco user Tobacco use disorder Prostate cancer screening Special screening for malignant neoplasm of prostate Mixed hyperlipidemia (CMS/HCC) Mixed hyperlipidemia Follicular lymphoma, unspecified follicular lymphoma type, unspecified body region (CMS/HCC) Obesity (BMI 30-39.9) Encounter for subsequent annual wellness visit (AWV) in Medicare patient- Primary Obesity (BMI 30-39.9) 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) Elevated PSA Elevated prostate specific antigen (PSA) Hypothyroidism, unspecified type (CMS/HCC) Anxiety- Primary Anxiety state, unspecified Morbid (severe) obesity due to excess calories (CMS/HCC) Hyperlipidemia, unspecified hyperlipidemia type (CMS/HCC) Body mass index (BMI) 39.0-39.9, adult Other insomnia Restless legs Restless legs syndrome (RLS) Hypothyroidism, unspecified type (CMS/HCC) Environmental and seasonal allergies Needs flu shot Need for prophylactic vaccination and inoculation against influenza documented in this encounter [facility] Progress note Note Date & Type Note Facility Progress note No data available for this section [facility] Summary Purpose Family History Relationship Condition Age [...] CREATED AUTHOR AUTHOR'S ORGANIZ ATION 07/27/2022 [facility] DATE CREATED AUTHOR AUTHOR'S ORGANIZ ATION 10/01/2023 [facility] DATE CREATED AUTHOR AUTHOR'S ORGANIZ ATION [facility] DATE CREATED AUTHOR AUTHOR'S ORGANIZ ATION 01/04/2024 [facility] DATE CREATED AUTHOR AUTHOR'S ORGANIZ ATION 02/27/2024 [facility] DATE CREATED AUTHOR AUTHOR'S ORGANIZ ATION 03/09/2024 [facility] d[facility] Special[facility] EPIC Reason for Visit (unrecogniz ed section and content) Reason Comments Pain Care Teams (unrecognized sec tion and content) 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 Start Date End Date Patric Quevedo MD [address] [place] [id number] PCP - General Family Medicine 07/01/23 Shazia Barrientos, MAHESH [address] [place] [phone] Nurse Practitioner Family Medicine 04/23/23 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 Start Date End Date Patric Quevedo MD [address] [place] [address] PCP - General Family Medicine 07/01/23 Shazia Barrientos, MAHESH [address] [place] [id number] Nurse Practitioner Family Medicine 04/23/23 Team Status: Active Member Role Status Dates Camilo Luque DO Primary Care Provider Active Team Status: Inactive Member Role Status Dates Camilo Luque DO Primary Care Provider Active S tart: December 29, 2023 End: December 29, 2023 Jojo Tolliver PA-C Attending Provider Active Start: December 29, 2023 End: December 29, 2023 Team Status: Inactive Member Role Status Dates Camilo Luque DO Primary Care Provider Active S tart: January 27, 2024 End: January 27, 2024 Julio Cesar Naidu Jr, DO Attending Provider Active Start: January 27, 2024 End: January 27, 2024 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 Start Date End Date Patric Quevedo MD [address] [place] [phone] PCP - General Family Medicine 07/01/23 Shazia Barrientos NP [address] [place] [phone] Nurse Practitioner [facility] 04/23/23 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 Start Date End Date Patric Quevedo MD [address] [place] [phone] PCP - General Family [facility] 07/01/23 Shazia Barrientos NP [address] [place] [phone] Nurse Practitioner [facility] 04/23/23 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 Start Date End Date Patric Quevedo MD [address] [place] [phone] PCP - General [facility] 07/01/23 Shazia Barrientos NP [address] [place] [phone] Nurse Practitioner [facility] 04/23/23 Goals (unrecognized section and content) Goals may [...] BE BASED ON THE PRIMARY CLINICAL RECORDS. [facility] [employer] [facility]. provides no warranty or guarantee of the accuracy or completeness of information in this document.
[2024-03-25 18:15] LABS: Prostate Specific Antigen Dx 7.52 ng/mL (<=4.00)
== END 2024-03-25 16:09 | disposition home or self-care (01) ==
LOC: LAB 16:13
PROVIDERS: PCP Nurse Practitioner; Visit Provider Physician Assistant
DX: R97.20 Elevated prostate specific antigen [PSA] (principal)
CPT/HCPCS: 36415; 84153